=== PATIENT | male | born 1935 | race African-American/Black ===

== ENCOUNTER 2016-06-06 14:06 | Emergency (ER) | payer MEDICARE, BC ==
[~2016-06-06] VITALS: Ht 162.6 cm; Wt 44.5 kg
[~2016-06-06 14:06] MED LIST: ACET500T33 PO; ATOR20TA58 PO; BISA-42 PO; ERYT1OIN6 OP; FINA5TAB4 PO; FLUT1DIS5 IH; FURO40TA4 PO; GUAI12003 PO; HYDR-2678 PO; LORA0.5T PO; METO25TA2 PO; OMEP40CA5 PO; PROAIR HFA8.5 GM INH; SUCR1TAB PO; TAMS0.4C97 PO; TIOT18CA IH
[2016-06-06] MEDS ORDERED: IV NORMAL SALINE 1000ML BAG 1,000 ML IV SCH (14:19)
[2016-06-06 14:28] LABS: BASO % 0 % (0-3); EOS % 0 % (0-3); HEMATOCRIT 33.9 % (39.0-53.0); HEMOGLOBIN 11.7 g/dL (13.0-17.5); LYMPH # 0.8 x10^3/uL (1.0-4.8); LYMPH % 8 % (24-48); MEAN CORPUSCULAR HEMOGLOBIN 30 pg (25-35); MEAN CORPUSCULAR HGB CONC 35 g/dL (31-37); MEAN CORPUSCULAR VOLUME 87 fL (79-100); MONO % 8 % (0-9); NEUT % 83 % (31-73); PLATELET COUNT 295 x10^3/uL (140-400); WHITE BLOOD COUNT 9.6 x10^3/uL (4.0-11.0)
--- NOTE | 2016-06-06 14:28 | PHYS DOC ---
Past Medical History Past Medical History: Arthritis, COPD Additional Past Medical Histor: CARDIOMYOPATHY Past Surgical History: Pacemaker Additional Past Surgical Histo: HERNIA Alcohol Use: None Drug Use: None Adult General Chief Complaint Chief Complaint: MECHANICAL FALL HPI HPI Patient is a pleasant 80-year-old male with a history of COPD emphysema and end- stage lung disease who presents today after a fall off a couch. Apparently last night he was sleeping on the couch rolled off the couch was disconnected from his oxygen was able to call his daughter. The daughter dispensed EMS to the scene and found this gentleman lying on the ground in the supine position saturations were in the mid 70s patient was not confused or altered was not complaining of any discomfort just was too weak to get off the floor. Patient denies any abdominal pain chest pain only has right shoulder pain that is reproducible on exam and with certain movements. Denies any hip pain denies any back pain as a new focal neurologic deficit. Patient's sats pop back up to the mid 90s to 100 100s based on his 4 L requirement for his chronic lung disease. He has no complaints at this time was prefer to go home but he is not significantly dehydrated. His family is at bedside Review of Systems Review of Systems Constitutional: Denies fever or chills [] Eyes: Denies change in visual acuity, redness, or eye pain [] HENT: Denies nasal congestion or sore throat [] Respiratory: Denies cough or shortness of breath [] Cardiovascular: No additional information not addressed in HPI [] GI: Denies abdominal pain, nausea, vomiting, bloody stools or diarrhea [] : Denies dysuria or hematuria [] Musculoskeletal: Complains only of right shoulder pain. Integument: Denies rash or skin lesions [] Neurologic: Denies headache, focal weakness or sensory changes [] Endocrine: Denies polyuria or polydipsia [] Current Medications Current Medications Current Medications Medications (Trade) Dose Ordered Sig/Yue Start Time Stop Time Status Last Admin Dose Admin Sodium Chloride (Iv Sodium Chloride 0.9% 1000ml Bag) 1,000 ml @ 1,000 mls/hr Q1H 06/06/16 14:19 06/06/16 15:18 DC 06/06/16 14:46 1,000 MLS/HR Sodium Chloride (Normal Saline Flush) 10 ml QSHIFT PRN 06/06/16 14:30 06/06/16 14:46 10 ML Allergies Allergies Allergies Coded Allergies Type Severity Reaction Last Updated Verified Penicillins Allergy Severe hives 10/14/15 Yes Physical Exam Physical Exam Constitutional: Well developed, well nourished, no acute distress, non-toxic appearance. [] HENT: Normocephalic, atraumatic, bilateral external ears normal, oropharynx moist, no oral exudates, nose normal. [] Eyes: PERRLA, EOMI, conjunctiva normal, no discharge. [] Neck: Normal range of motion, no tenderness, supple, no stridor. [] Cardiovascular:Heart rate regular rhythm, no murmur [] Lungs & Thorax: Chronic shortness of breath without wheeze cough Abdomen: Bowel sounds normal, soft, no tenderness, no masses, no pulsatile masses. [] Skin: Warm, dry, no erythema, no rash. [] Back: No tenderness, no CVA tenderness. [] Extremities: No tenderness, no cyanosis, no clubbing, ROM intact, no edema. [] Neurologic: Alert and oriented X 3, normal motor function, normal sensory function, no focal deficits noted. [] Psychologic: Affect normal, judgement normal, mood normal. [] Current Patient Data Vital Signs Vital Signs Date Time Temp Pulse Resp B/P Pulse Ox O2 Delivery O2 Flow Rate FiO2 06/06/16 14:51 94 22 108/55 98 Nasal Cannula 4 06/06/16 14:11 98.2 98.2 Lab Values Laboratory Tests Test 06/06/16 14:10 06/06/16 14:45 White Blood Count 9.6x10^3/uL (4.0-11.0) Red Blood Count 3.90x10^6/uL (4.30-5.70) L Hemoglobin 11.7g/dL (13.0-17.5) L Hematocrit 33.9% (39.0-53.0) L Mean Corpuscular Volume 87fL (79-100) Mean Corpuscular Hemoglobin 30pg (25-35) Mean Corpuscular Hemoglobin Concent 35g/dL (31-37) Red Cell Distribution Width 14.0% (11.5-14.5) Platelet Count 295x10^3/uL (140-400) Neutrophils (%) (Auto) 83% (31-73) H Lymphocytes (%) (Auto) 8% (24-48) L Monocytes (%) (Auto) 8% (0-9) Eosinophils (%) (Auto) 0% (0-3) Basophils (%) (Auto) 0% (0-3) Neutrophils # (Auto) 7.9x10^3uL (1.8-7.7) H Lymphocytes # (Auto) 0.8x10^3/uL (1.0-4.8) L Monocytes # (Auto) 0.8x10^3/uL (0.0-1.1) Eosinophils # (Auto) 0.0x10^3/uL (0.0-0.7) Basophils # (Auto) 0.0x10^3/uL (0.0-0.2) Troponin I Quantitative 0.024ng/mL (0.000-0.055) Sodium Level 130mmol/L (136-145) L Potassium Level 4.2mmol/L (3.5-5.1) Chloride Level 92mmol/L (98-107) L Carbon Dioxide Level 35mmol/L (21-32) H Anion Gap 3 (6-14) L Blood Urea Nitrogen 15mg/dL (8-26) Creatinine 0.6mg/dL (0.7-1.3) L Estimated GFR (Cockcroft-Gault) 156.1 Glucose Level 110mg/dL (70-99) H Calcium Level 9.1mg/dL (8.5-10.1) Laboratory Tests 06/06/16 14:10 Laboratory Tests 06/06/16 14:45 EKG EKG [Patient's EKG timed 1417 06/06/2016 that J sinus tachycardia low voltage with purulent 140 QRS of 102 nonspecific T-wave flattening in the lateral leads no acute ischemia noted. There is a question Q-wave in V1] Radiology/Procedures Radiology/Procedures [] Portable chest, 06/06/2016: History: Fall, injury Comparison is made to a study from 09/02/2012. A left-sided transvenous pacemaker remains in place with 2 leads extending into the right heart. Surgical clips overlie the upper chest. The heart size is normal. There is calcific plaquing of the aorta. Emphysematous changes are present in the lungs. Scattered linear opacities are probably due to scarring. There are oblique lines overlying the right chest laterally compatible with skin folds. There is no evidence of pneumothorax or pleural fluid. The bony structures are demineralized. IMPRESSION: 1. Emphysema with parenchymal scarring. 2. No acute cardiopulmonary abnormality is detected. DICTATED and SIGNED BY: DEEJAY BARROS MD DATE: 06/06/16 1441 CC: DAPHNE GUPTA MD; SABINO ROMEO MD ~ Indication fall, pain. Internally and externally rotated views of the right shoulder as well as a Y view were obtained. There are substantial degenerative changes. There is marked narrowing between the head of the humerus and the acromion consistent with a chronic rotator cuff tear. Sclerotic changes at the same level are noted. There are significant glenohumeral degenerative changes as well as degenerative change at the AC joint. An acute bony finding is not seen. IMPRESSION: Chronic changes. No acute finding seen DICTATED and SIGNED BY: BETH SALAS MD DATE: 06/06/16 1444 CC: DAPHNE GUPTA MD; SABINO ROMEO MD ~ Course & Med Decision Making Course & Med Decision Making Pertinent Labs and Imaging studies reviewed. (See chart for details) [Patient is a pleasant 6-year-old male with a history of COPD and emphysema slid off the couch was too weak to get up last night called his daughter this morning off his oxygen noted to be hypoxic but not altered. Oxygen was returned patient feels markedly better with actually like to go home. He's got no complaints x-ray showed be completed basic labs be completely to make sure patient is definitely dehydrated or weakness was associated with an cardiac event.] Patient is a pleasant 80-year-old male who is presently resting comfortably reviewed chest x-ray as well as shoulder x-ray done asserting no cold fractures no pulmonary contusion notes of pneumothorax. Patient would prefer to go home like enzymes are normal patient has a history of hyponatremia today's sodium levels 130 which is not significantly lower than normal. We transported by his daughter. He was initially thought the patient was too weak secondary to general debility which is likely and hypoxia. Hypoxia was well treated with nasal cannula at 4 L which is his normal level of oxygenation. Has no complaints this time will be discharged home. Dragon Disclaimer Dragon Disclaimer This electronic medical record was generated, in whole or in part, using a voice recognition dictation system. Departure Departure Impression: Primary Impression: Shoulder contusion Additional Impression: Hypoxia Disposition: 01 HOME, SELF-CARE Condition: IMPROVED Referrals: SABINO ROMEO MD (PCP) Patient Instructions: Chronic Obstructive Pulmonary Disease, Contusion, Hypoxemia Additional Instructions: Please return for any new or increasing symptoms or feel any increased shoulder pain or neck pain. I know we discussed possible head CT but given the fact of no head injury would not like head CT there is some risk shearing forces causing intracranial hemorrhage even such low-impact mechanism. Encouraged to return immediately for any change in mental status or activity question concerns. Please follow up with her primary doctor for routine care Scripts Acetaminophen (Tylenol)325 Mg Tablet1-2 Tab PO QID PAIN #60 TAB Ref 2 Prov:DAPHNE GUPTA MD 06/06/16 Problem Qualifiers DAPHNE GUPTA MD June 06, 2016 14:28
[2016-06-06] MEDS ORDERED: 0.9 % SODIUM CHLORIDE 10 ML DISP.SYRIN. IV PRN (14:30)
--- NOTE | 2016-06-06 14:37 | EKG ---
[facility] [address] [place] [address] Test Date: 2016-06-06 Test Time: 14:17:13 Pat Name: BALBIR CLEMENT Department: Room: Gender: M Pleat Taper: : 1935 Requested By: DAPHNE GUPTA Order Number: [id number] Reading MD: Kristen Hammond Measurements Intervals [place] Rate: 104 P: 69 [place]: 140 QRS: 76 QRSD: 102 T: 75 QT: 298 QTc: 392 Interpretive Statements SINUS TACHYCARDIA LOW LIMB LEAD VOLTAGE QRS(T) CONTOUR ABNORMALITY CANNOT RULE OUT ANTEROSEPTAL MYOCARDIAL DAMAGE RI6.01 Unconfirmed report Compared to ECG 09/02/2012 20:22:50 No significant changes Electronically Signed On 06-07-2016 20:41:23 CDT by Kristen Hammond
--- NOTE | 2016-06-06 14:47 | RAD ---
Portable chest, 06/06/2016: History: Fall, injury Comparison is made to a study from 09/02/2012. A left-sided transvenous pacemaker remains in place with 2 leads extending into the right heart. Surgical clips overlie the upper chest. The heart size is normal. There is calcific plaquing of the aorta. Emphysematous changes are present in the lungs. Scattered linear opacities are probably due to scarring. There are oblique lines overlying the right chest laterally compatible with skin folds. There is no evidence of pneumothorax or pleural fluid. The bony structures are demineralized. IMPRESSION: 1. Emphysema with parenchymal scarring. 2. No acute cardiopulmonary abnormality is detected.
--- NOTE | 2016-06-06 14:49 | RAD ---
Indication fall, pain. Internally and externally rotated views of the right shoulder as well as a Y view were obtained. There are substantial degenerative changes. There is marked narrowing between the head of the humerus and the acromion consistent with a chronic rotator cuff tear. Sclerotic changes at the same level are noted. There are significant glenohumeral degenerative changes as well as degenerative change at the AC joint. An acute bony finding is not seen. IMPRESSION: Chronic changes. No acute finding seen
[2016-06-06 15:08] LABS: CALCIUM 9.1 mg/dL (8.5-10.1); CREATININE 0.6 mg/dL (0.7-1.3); GFR 156.1; POTASSIUM 4.2 mmol/L (3.5-5.1)
[2016-06-06 15:51] VITALS: BP 106/65
[2016-06-06] MEDS ORDERED: ACET325T9 PO (15:59)
== END 2016-06-06 16:21 | disposition home or self-care (01) ==
LOC: ER 14:06
DX: S40.011A Contusion of right shoulder, initial encounter (principal); R09.02 Hypoxemia; J43.9 Emphysema, unspecified; Z95.0 Presence of cardiac pacemaker; Z88.0 Allergy status to penicillin; W08.XXXA Fall from other furniture, initial encounter; Y93.89 Activity, other specified; Y99.8 Other external cause status; Y92.89 Other specified places as the place of occurrence of the external cause
CPT/HCPCS: 36415; 71010; 73030; 80048; 84484; 85027; 93005; 96360; 99285; J7030

== ENCOUNTER 2016-06-25 19:58 | Inpatient (IN) | payer MEDICARE, BC ==
[~2016-06-25] VITALS: Ht 165.1 cm; Wt 44.0 kg
[~2016-06-25 19:58] MED LIST changes: +ACET325T9 PO
[2016-06-25 21:21] LABS: BASO % 0 % (0-3); EOS % 1 % (0-3); HEMATOCRIT 34.9 % (39.0-53.0); HEMOGLOBIN 11.5 g/dL (13.0-17.5); LYMPH # 0.6 x10^3/uL (1.0-4.8); LYMPH % 9 % (24-48); MEAN CORPUSCULAR HEMOGLOBIN 30 pg (25-35); MEAN CORPUSCULAR HGB CONC 33 g/dL (31-37); MEAN CORPUSCULAR VOLUME 90 fL (79-100); MONO % 11 % (0-9); NEUT % 80 % (31-73); PLATELET COUNT 266 x10^3/uL (140-400); RED BLOOD COUNT 3.88 x10^6/uL (4.30-5.70); RED CELL DISTRIBUTION WIDTH 16.2 % (11.5-14.5); WHITE BLOOD COUNT 7.4 x10^3/uL (4.0-11.0)
[2016-06-25] MEDS ORDERED: IV NORMAL SALINE 1000ML BAG 1,000 ML IV ONE ×2 (21:30→23:00)
[2016-06-25] MEDS ORDERED: fentaNYL PF VIAL 100 MCG/2 ML VIAL IV ONE ×2 (21:30→22:45)
--- NOTE | 2016-06-25 21:32 | PHYS DOC ---
Past Medical History Past Medical History: Arthritis, COPD Additional Past Medical Histor: CARDIOMYOPATHY Past Surgical History: Pacemaker Additional Past Surgical Histo: HERNIA, RIGHT LOBECTOMY Alcohol Use: None Drug Use: None Adult General Chief Complaint Chief Complaint: WEAKNESS/GENERALIZED HPI HPI 80-year-old male with history of generalized weakness that's worsened over the last several weeks as well as some mild weight loss as well. Patient has had frequent falls in the last several weeks most notably one approximately 2 weeks ago. She was evaluated at that time and ultimately discharged. Approximately one week later he had another fall but was not evaluated. He does state he hit his head with the fall. Patient is fully alert and oriented at this time and can answer all my questions. He appears cachectic but in no acute distress. He is tachycardic and mildly hypotensive upon arrival. He denies any recent fever or chills. Denies any nausea or vomiting. His family at bedside states he is not eating or drinking at home. They felt they feel he is a candidate at this time for hospice. He is a DNR patient per his own words and family as well at bedside Review of Systems Review of Systems Constitutional: Denies fever or chills [] Eyes: Denies change in visual acuity, redness, or eye pain [] HENT: Denies nasal congestion or sore throat [] Respiratory: Denies cough or shortness of breath [] Cardiovascular: No additional information not addressed in HPI [] GI: Denies abdominal pain, nausea, vomiting, bloody stools or diarrhea [] : Denies dysuria or hematuria [] Musculoskeletal: Denies back pain or joint pain [] Integument: Denies rash or skin lesions [] Neurologic: Denies headache, focal weakness or sensory changes [] Endocrine: Denies polyuria or polydipsia [] Current Medications Current Medications Current Medications Medications (Trade) Dose Ordered Sig/Yue Start Time Stop Time Status Last Admin Dose Admin Fentanyl Citrate (Fentanyl 2ml Vial) 50 mcg 1X ONCE 06/25/16 21:30 06/25/16 21:31 DC 06/25/16 22:16 50 MCG Sodium Chloride 1,000 ml @ 1,000 mls/hr 1X ONCE 06/25/16 21:30 06/25/16 22:29 DC 06/25/16 22:16 1,000 MLS/HR Allergies Allergies Allergies Coded Allergies Type Severity Reaction Last Updated Verified Penicillins Allergy Severe hives 10/14/15 Yes Physical Exam Physical Exam Constitutional: Cachetic, no acute distress, non-toxic appearance. [] HENT: Normocephalic, atraumatic, bilateral external ears normal, oropharynx moist, no oral exudates, nose normal. [] Eyes: PERRLA, EOMI, conjunctiva normal, no discharge. [] Neck: Normal range of motion, no tenderness, supple, no stridor. [] Cardiovascular:Heart rate tachycardic with regular rhythm, no murmur [] Lungs & Thorax: Bilateral breath sounds clear to auscultation [] Abdomen: Bowel sounds normal, soft, no tenderness, no masses, no pulsatile masses. [] Skin: Warm, dry, no erythema, no rash. [] Back: No tenderness, no CVA tenderness. [] Extremities: No tenderness, no cyanosis, no clubbing, ROM intact, no edema. [] Neurologic: Alert and oriented X 3, normal motor function, normal sensory function, no focal deficits noted. [] Psychologic: Affect normal, judgement normal, mood normal. [] Current Patient Data Vital Signs Vital Signs Date Time Temp Pulse Resp B/P (MAP) Pulse Ox O2 Delivery O2 Flow Rate FiO2 06/25/16 20:33 97.9 59 18 101/64 (76) 93 Nasal Cannula 4.0 97.9 Lab Values Laboratory Tests Test 06/25/16 21:11 White Blood Count 7.4 x10^3/uL (4.0-11.0) Red Blood Count 3.88 x10^6/uL (4.30-5.70) L Hemoglobin 11.5 g/dL (13.0-17.5) L Hematocrit 34.9 % (39.0-53.0) L Mean Corpuscular Volume 90 fL (79-100) Mean Corpuscular Hemoglobin 30 pg (25-35) Mean Corpuscular Hemoglobin Concent 33 g/dL (31-37) Red Cell Distribution Width 16.2 % (11.5-14.5) H Platelet Count 266 x10^3/uL (140-400) Neutrophils (%) (Auto) 80 % (31-73) H Lymphocytes (%) (Auto) 9 % (24-48) L Monocytes (%) (Auto) 11 % (0-9) H Eosinophils (%) (Auto) 1 % (0-3) Basophils (%) (Auto) 0 % (0-3) Neutrophils # (Auto) 5.9 x10^3uL (1.8-7.7) Lymphocytes # (Auto) 0.6 x10^3/uL (1.0-4.8) L Monocytes # (Auto) 0.8 x10^3/uL (0.0-1.1) Eosinophils # (Auto) 0.1 x10^3/uL (0.0-0.7) Basophils # (Auto) 0.0 x10^3/uL (0.0-0.2) Sodium Level 134 mmol/L (136-145) L Potassium Level 3.7 mmol/L (3.5-5.1) Chloride Level 94 mmol/L (98-107) L Carbon Dioxide Level 38 mmol/L (21-32) H Anion Gap 2 (6-14) L Blood Urea Nitrogen 42 mg/dL (8-26) H Creatinine 1.0 mg/dL (0.7-1.3) Estimated GFR (Cockcroft-Gault) 86.6 Glucose Level 136 mg/dL (70-99) H Calcium Level 9.8 mg/dL (8.5-10.1) Troponin I Quantitative < 0.017 ng/mL (0.000-0.055) Laboratory Tests 06/25/16 21:11 Laboratory Tests 06/25/16 21:11 EKG EKG EKG as interpreted by vt shows a sinus tachycardia with a rate of 113 bpm. There is a rightward axis. There is some mild ectopy seen but no acute findings otherwise. Radiology/Procedures Radiology/Procedures PROCEDURE CT head without contrast HISTORY Status post fall TECHNIQUE Noncontrast axial cross sectional CT scanning of the head was performed. FINDINGS There is moderate diffuse atrophy. No acute intracranial hemorrhage or midline shift or mass-effect or hydrocephalus or extra-axial fluid collection is seen. No focal hypodense area is seen to indicate an acute infarct or edema radiographically. No skull fracture or pneumocephalus is seen. There is a small amount of dense fluid in the visualized portion of the left maxillary sinus and a small amount of dense fluid within a few of the ethmoid air cells. IMPRESSION One. No acute intracranial findings. 2. Dense fluid within the sinuses could be blood. Clinical correlation is suggested. Electronically signed by: Dominic Lujan MD (June 25, 2016 21:49:57) Portable view of the hip and pelvis as interpreted by me did not demonstrate any obvious fracture. Portable view of the chest as interpreted by me shows a later device with leads that are appropriately placed. There is no obvious findings. Course & Med Decision Making Course & Med Decision Making Pertinent Labs and Imaging studies reviewed. (See chart for details) 80-year-old male who is mildly dehydrated on exam with history of frequent falls in extreme weakness will be admitted to the hospital and a positive consult will be placed. Laboratory workup is pending at this time. I will also obtain a head CT and light of the fact that he had a recent fall in does state he hit his head. He is not altered in any way. I do not see any focal neurologic deficits at this time. His laboratory workup is fairly unremarkable and urinalysis is pending at this time. His chest x-ray, hip and pelvis film, head CT were negative for any obvious injuries. I discussed the need to admit the patient for his ongoing dehydration and failure to thrive with the hospitalist, Dr. Lopez, who agrees with this plan. Palliative consult has been placed. Dragon Disclaimer Dragon Disclaimer This electronic medical record was generated, in whole or in part, using a voice recognition dictation system. Departure Departure Impression: Primary Impression: Weakness Additional Impressions: Dehydration Failure to thrive Disposition: ADMITTED INPATIENT Admitting Physician: Sukh Lopez Condition: STABLE Referrals: SUKH LOPEZ MD (PCP) Problem Qualifiers TRUDI BIRCH DO June 25, 2016 21:32
[2016-06-25 21:33] LABS: CALCIUM 9.8 mg/dL (8.5-10.1); GFR 86.6; POTASSIUM 3.7 mmol/L (3.5-5.1)
--- NOTE | 2016-06-25 21:50 | RAD ---
PROCEDURE CT head without contrast HISTORY Status post fall TECHNIQUE Noncontrast axial cross sectional CT scanning of the head was performed. FINDINGS There is moderate diffuse atrophy. No acute intracranial hemorrhage or midline shift or mass-effect or hydrocephalus or extra-axial fluid collection is seen. No focal hypodense area is seen to indicate an acute infarct or edema radiographically. No skull fracture or pneumocephalus is seen. There is a small amount of dense fluid in the visualized portion of the left maxillary sinus and a small amount of dense fluid within a few of the ethmoid air cells. IMPRESSION One. No acute intracranial findings. 2. Dense fluid within the sinuses could be blood. Clinical correlation is suggested. Electronically signed by: Dominic Lujan MD (June 25, 2016 21:49:57)
[2016-06-25] MEDS ORDERED: ONDANSETRON PF 4 MG/2 ML VIAL. IV PRN (22:00)
[2016-06-25 22:46] LABS: BILIRUBIN,URINE NEGATIVE (NEG); GLUCOSE,URINE NEGATIVE (NEG); NITRITE,URINE NEGATIVE (NEG); PH,URINE 5.5; PROTEIN,URINE NEGATIVE (NEG-TRACE); UROBILINOGEN,URINE 0.2 mg/dL (0.2 mg/dL)
--- NOTE | 2016-06-25 22:59 | ACF ---
Admit Criteria Forms Admit Criteria Forms Admit Criteria Forms DEHYDRATION Clinical Indications for Admission to Inpatient Care (Place 'X' for any and all applicable criteria): Admission is indicated for ANY ONE of the following (1)(2)(3)(4)(5): [X]I. Inpatient admission required rather than observation care (see Dehydration: Observation Care guideline as appropriate) because of ANY ONE of the following: [ ]a) Vomiting that is severe or persistent [ ]b) Severe electrolyte abnormalities requiring inpatient care [ ]c) Hemodynamic instability [ ]d) IV fluid to replace significant ongoing losses (greater than 3 L/m2 per day (10) (11) [ ]e) Parenteral nutrition regimen that must be implemented on inpatient basis [X]f) Other condition,treatment or monitoring requiring inpatient admission [ ]II. Serious cause for dehydration requiring acute hospitalization (eg, bowel obstruction, increased intracranial pressure, infectious cause) Extended stay beyond goal length of stay may be needed for(1)(3 )(4)(17): [ ]a) Chronic severe dehydration [ ]b) Persistent vital sign changes, severe electrolyte imbalance, or diagnosed cause of dehydration that requires continued hospitalization (eg, bowel obstruction, increased intracranial pressure) [ ]c) Older patients (65 years or older) [ ]d) Severe comorbid illness (eg, renal failure, heart failure, poorly controlled diabetes) The original [employer] content created by [employer] has been revised. The portions of the content which have been revised are identified through the use of italic text or in bold, and [facility] has neither reviewed nor approved the modified material. All other unmodified content is copyright [employer]. Please see references footnoted in the original [employer] edition 2016 TAY BORRERO June 25, 2016 22:59
[2016-06-25 23:00] VITALS: BP 93/59
[2016-06-25 23:13] LABS: BACTERIA,URINE 0 /HPF (0-FEW); RBC,URINE OCC /HPF (0-2); WBC,URINE OCC /HPF (0-4)
[2016-06-26] MEDS ORDERED: UBID30CA14 PO (00:20)
[2016-06-26] MEDS ORDERED: ROFL500T7 PO (00:20)
[2016-06-26] MEDS ORDERED: RANI300T PO (00:20)
[2016-06-26] MEDS ORDERED: ZOLP5TAB5 PO (00:20)
[2016-06-26] MEDS ORDERED: PROAIR HFA8.5 GM INH (00:20)
[2016-06-26] MEDS ORDERED: FLUT9.9S NS (00:20)
[2016-06-26] MEDS ORDERED: HYDR-2672 PO (00:20)
[2016-06-26] MEDS ORDERED: ALBU1.25 NEB (00:20)
[2016-06-26] MEDS ORDERED: GUAI400T27 PO (00:20)
[2016-06-26] MEDS ORDERED: FLUT1DIS5 IH (00:20)
[2016-06-26] MEDS ORDERED: POTA20TA82 PO (00:20)
[2016-06-26] MEDS: fentaNYL PF VIAL 100 MCG/2 ML VIAL IV PRN ×6 (01:34→21:53)
[2016-06-26 03:00] VITALS: BP 94/48
[2016-06-26 06:10] LABS: CALCIUM 8.8 mg/dL (8.5-10.1); CREATININE 0.8 mg/dL (0.7-1.3); POTASSIUM 4.1 mmol/L (3.5-5.1)
[2016-06-26 06:12] LABS: BASO % 0 % (0-3); EOS % 0 % (0-3); HEMATOCRIT 29.4 % (39.0-53.0); HEMOGLOBIN 9.9 g/dL (13.0-17.5); LYMPH # 0.9 x10^3/uL (1.0-4.8); LYMPH % 8 % (24-48); MEAN CORPUSCULAR HEMOGLOBIN 30 pg (25-35); MEAN CORPUSCULAR HGB CONC 34 g/dL (31-37); MEAN CORPUSCULAR VOLUME 89 fL (79-100); MONO % 9 % (0-9); NEUT % 82 % (31-73); PLATELET COUNT 266 x10^3/uL (140-400); RED BLOOD COUNT 3.32 x10^6/uL (4.30-5.70); RED CELL DISTRIBUTION WIDTH 16.1 % (11.5-14.5); WHITE BLOOD COUNT 11.2 x10^3/uL (4.0-11.0)
[2016-06-26 07:00] VITALS: BP 91/50
--- NOTE | 2016-06-26 07:31 | EKG ---
[facility] [address] [place] [address] Test Date: 2016-06-25 Test Time: 21:20:28 Pat Name: BALBIR CLEMENT Department: Room: [facility] Gender: M [employer]ician: : 1935 Requested By: TRUDI BIRCH Order Number: [id number] Reading MD: Kristen Hammond Measurements Intervals [place] Rate: 113 P: 90 [place]: 140 QRS: 96 QRSD: 110 T: 94 QT: 338 QTc: 469 Interpretive Statements SINUS TACHYCARDIA RIGHTWARD AXIS LOW LIMB LEAD VOLTAGE RI6.01 Compared to ECG 06/06/2016 14:17:13 Right-axis deviation now present Electronically Signed On 06-29-2016 20:33:11 CDT by Kristen Hammond
--- NOTE | 2016-06-26 07:44 | RAD ---
Pelvis with both hips, 06/25/2016: History: Fall, pain No fracture or dislocation is identified. The hip joint spaces are fairly well-preserved with only mild marginal spurring. There are mild degenerative changes in the lower lumbar spine. Scattered vascular calcifications are evident. IMPRESSION: No acute pelvic or hip abnormality is detected. Portable chest, 06/25/2016: History: Shortness of breath Comparison is made to a study from 06/06/2016. A left-sided transvenous pacemaker remains in place with 2 leads extending into the right heart. Surgical clips are again noted in the upper chest. The heart size is normal. There is a minimal streaky retrocardiac opacity in the left base. Emphysematous changes are present in the lungs with mild parenchymal scarring. No right lung infiltrate is seen. There is no evidence of pleural fluid. IMPRESSION: 1. Emphysema with parenchymal scarring. 2. Minimal retrocardiac left basilar opacities compatible with atelectasis. A component of pneumonia cannot be excluded.
[2016-06-26] MEDS ORDERED: ACETAMINOPHEN 325 MG TABLET. PO PRN (08:45)
[2016-06-26] MEDS ORDERED: MAGNESIUM HYDROXIDE 2,400 MG/30 ML ORAL.SUSP. PO PRN (08:45)
[2016-06-26] MEDS ORDERED: BISACODYL 10 MG SUPP.RECT. PR PRN (08:45)
[2016-06-26] MEDS ORDERED: ALBUTEROL SULFATE 2.5 MG/3 ML NEBU. NEB PRN (09:15)
[2016-06-26] MEDS ORDERED: fentaNYL PF VIAL 100 MCG/2 ML VIAL IV PRN (09:15)
--- NOTE | 2016-06-26 09:27 | PDOC ---
Provider Note Provider Note history and physical dictated # [id number] SABINO ROMEO MD June 26, 2016 09:27
[2016-06-26] MEDS: AMINO AC 3%/ELECTROLYTE/GLYCER 1,000 ML IV SCH (09:37)
[2016-06-26] MEDS: SUCRALFATE 1 GM/10 ML ORAL.SUSP. PO SCH ×4 (09:39→21:47)
[2016-06-26] MEDS: ROFLUMILAST 500 MCG TABLET. PO SCH (09:39)
[2016-06-26] MEDS: FINASTERIDE 5 MG TABLET. PO SCH (09:39)
[2016-06-26] MEDS: FERROUS SULFATE 325 MG TABLET. PO SCH (09:39)
[2016-06-26] MEDS: LORazepam 0.5 MG TABLET PO PRN (09:39)
[2016-06-26] MEDS: PANTOPRAZOLE 40 MG TABLET.DR. PO SCH ×2 (09:40→17:00)
[2016-06-26] MEDS ORDERED: PANTOPRAZOLE 40 MG TABLET.DR. PO SCH (10:00)
--- NOTE | 2016-06-26 10:20 | RAD ---
Indication shortness of breath. History of cardiomyopathy. Noncontrast images through the chest were obtained and are compared to an examination 12/27/2015. That examination referenced several nodules in the lungs. Imaging through the upper abdomen is unremarkable. Known anterior mediastinal mass persists and appears unchanged. Significant hilar or mediastinal adenopathy is not seen. Underlying emphysematous changes are noted. Occasional small nodules seen previously appear stable. Patchy nonsolid parenchymal opacity seen previously in the right lower lobe has cleared. The finding previously may have represented a focus of pneumonia. There are possible two small new nodules in the right lower lobe, images 23 and 25. There is an opacity in the left upper lobe measuring approximately 4 to 5 mm, image 32, which may represent an area of scarring or an inflammatory focus. A developing pulmonary nodule is not entirely excluded. There are changes in the left lower lobe which appear chronic. IMPRESSION: No definite acute finding. Unchanged mediastinal mass. Several pulmonary nodules are seen which appear stable. There are possible new nodules in the right lower lobe and left upper lobe. Parenchymal changes in the left lower lobe, probably chronic and appearing relatively stable compared to the previous exam PQRS Compliance Statement: One or more of the following individualized dose reduction techniques were utilized for this examination: 1. Automated exposure control 2. Adjustment of the mA and/or kV according to patient size 3. Use of iterative reconstruction technique
[2016-06-26] MEDS: HYDROcodone/APAP 5/325MG 1 TAB TABLET PO PRN ×2 (10:39→18:00)
[2016-06-26 10:56] VITALS: BP 97/62
--- NOTE | 2016-06-26 11:04 | PDOC2 ---
GI CONSULT Reason For Consult: Solid food dysphagia, Vogel's esophagus HPI: HPI: 80 y/o AA male brought to ER by family for progressive weakness, decreased oral intake, weight loss, recent falls. Previous eval through [facility] for similar symptoms. History from office records, pt, and niece Jacklyn at bedside. Note cosnult for palliative care also placed. H/o dysphagia 2/2 dysmotility w/ prior esophageal manometry by Dr. Godfrey in 2012 showing hypotensive peristaltic activity in the esophageal body. Apparently had some response to esophageal dilation at one point (for about 1-2 months at a time before recurrence of symptoms), but this lost efficacy. Additional h/o Vogel's diagnosed in 1997 w/ last two biopsies negative. On PPI and H2 stefani. Last EGD in 10/[address] Capone revealing jhony in the esophagus (treated w/ Nystatin swish and swallow), inflammation in the distal esophagus (negative for Vogel's), reactive gastropathy (negative for H. pylori ), and normal mucosa in the duodenum. H/o COPD w/ use of inhalers. 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 Domperidone caused tremors, and he has refused trial of Reglan. As of last office visit in 10/2015, was taking E-mycin 250mg TID but no longer (niece not sure why). Refused PEG in past. H/o constipation improved w/ Dulcolax. Last had soft BM ~2 days ago. Last colonoscopy in 10/2015 w/ 5mm rectal tubular adenoma and hemorrhoids. Per his niece, he diet is limited to liquids he eats through a straw (ice cream shakes, soups, cream of wheat). He says he can no longer tolerate the taste of Boost or Ensure. He does tolerate swallowing pills. Family says he has lost an additional ~20 pounds in the past two months. He's not sure if swallowing is more difficult now. No odynophagia or abd pain. He still does not want a PEG but agrees to think about it per his family's request. Started on PPN and full liquids, pulmonology also asked to see. PMH: PMH: esophageal dysmotility/dysphagia, GERD/Vogel's esophagus, jhony esophagitis , hiatal hernia, IBS, weight loss, cardiomyopathy, COPD/emphysema, dyslipidemia , BPH, arthritis, lactose intolerance, pacemaker/defibrillator, right lobectomy (says for COPD, denies cancer) FH: Family History: No pertinent hx Social History: Smoke: Quit ALCOHOL: rare Drugs: None ROS: GEN: Denies fevers, chills, sweats HEENT: Denies blurred vision, sore throat CV: Denies chest pain RESP: +SOA GI: Per HPI : Denies hematuria, dysuria ENDO: +weight loss NEURO: Denies confusion, dizziness MSK: +weakness +falls SKIN: Denies jaundice, pruritus Vitals: Vitals: Vital Signs Date Time Temp Pulse Resp B/P (MAP) Pulse Ox O2 Delivery O2 Flow Rate FiO2 06/26/16 09:38 18 Nasal Cannula 6.0 06/26/16 07:00 98.1 101 91/50 (64) 99 98.1 Labs: Labs: Laboratory Tests Test 06/25/16 21:11 06/25/16 22:30 06/26/16 05:35 White Blood Count 7.4 x10^3/uL (4.0-11.0) 11.2 x10^3/uL (4.0-11.0) Red Blood Count 3.88 x10^6/uL (4.30-5.70) 3.32 x10^6/uL (4.30-5.70) Hemoglobin 11.5 g/dL (13.0-17.5) 9.9 g/dL (13.0-17.5) Hematocrit 34.9 % (39.0-53.0) 29.4 % (39.0-53.0) Mean Corpuscular Volume 90 fL (79-100) 89 fL (79-100) Mean Corpuscular Hemoglobin 30 pg (25-35) 30 pg (25-35) Mean Corpuscular Hemoglobin Concent 33 g/dL (31-37) 34 g/dL (31-37) Red Cell Distribution Width 16.2 % (11.5-14.5) 16.1 % (11.5-14.5) Platelet Count 266 x10^3/uL (140-400) 266 x10^3/uL (140-400) Neutrophils (%) (Auto) 80 % (31-73) 82 % (31-73) Lymphocytes (%) (Auto) 9 % (24-48) 8 % (24-48) Monocytes (%) (Auto) 11 % (0-9) 9 % (0-9) Eosinophils (%) (Auto) 1 % (0-3) 0 % (0-3) Basophils (%) (Auto) 0 % (0-3) 0 % (0-3) Neutrophils # (Auto) 5.9 x10^3uL (1.8-7.7) 9.3 x10^3uL (1.8-7.7) Lymphocytes # (Auto) 0.6 x10^3/uL (1.0-4.8) 0.9 x10^3/uL (1.0-4.8) Monocytes # (Auto) 0.8 x10^3/uL (0.0-1.1) 1.0 x10^3/uL (0.0-1.1) Eosinophils # (Auto) 0.1 x10^3/uL (0.0-0.7) 0.0 x10^3/uL (0.0-0.7) Basophils # (Auto) 0.0 x10^3/uL (0.0-0.2) 0.0 x10^3/uL (0.0-0.2) Sodium Level 134 mmol/L (136-145) 137 mmol/L (136-145) Potassium Level 3.7 mmol/L (3.5-5.1) 4.1 mmol/L (3.5-5.1) Chloride Level 94 mmol/L (98-107) 98 mmol/L (98-107) Carbon Dioxide Level 38 mmol/L (21-32) 35 mmol/L (21-32) Anion Gap 2 (6-14) 4 (6-14) Blood Urea Nitrogen 42 mg/dL (8-26) 33 mg/dL (8-26) Creatinine 1.0 mg/dL (0.7-1.3) 0.8 mg/dL (0.7-1.3) Estimated GFR (Cockcroft-Gault) 86.6 112.0 Glucose Level 136 mg/dL (70-99) 92 mg/dL (70-99) Calcium Level 9.8 mg/dL (8.5-10.1) 8.8 mg/dL (8.5-10.1) Troponin I Quantitative < 0.017 ng/mL (0.000-0.055) Urine Collection Type Unknown Urine Color Yellow Urine Clarity Clear Urine pH 5.5 Urine Specific [place] 1.015 Urine Protein Negative mg/dL (NEG-TRACE) Urine Glucose (UA) Negative mg/dL (NEG) Urine Ketones (Stick) Negative mg/dL (NEG) Urine Blood Negative (NEG) Urine Nitrite Negative (NEG) Urine Bilirubin Negative (NEG) Urine Urobilinogen Dipstick 0.2 mg/dL (0.2 mg/dL) Urine Leukocyte Esterase Negative (NEG) Urine RBC Occ /HPF (0-2) Urine WBC Occ /HPF (0-4) Urine Squamous Epithelial Cells None /LPF Urine Bacteria 0 /HPF (0-FEW) Urine Hyaline Casts Few /HPF Urine Mucus Slight /LPF Allergies: Coded Allergies: Penicillins (Verified Allergy, Severe, hives, 10/14/15) Medications: Current Medications Medications (Trade) Dose Ordered Sig/Yue Route PRN Reason Start Time Stop Time Status Last Admin Dose Admin Fentanyl Citrate (Fentanyl 2ml Vial) 50 mcg 1X ONCE IV 06/25/16 21:30 06/25/16 21:31 DC 06/25/16 22:16 Sodium Chloride 1,000 ml @ 1,000 mls/hr 1X ONCE IV 06/25/16 21:30 06/25/16 22:29 DC 06/25/16 22:16 Ondansetron HCl (Zofran) 4 mg PRN Q8HRS PRN IV NAUSEA/VOMITING 06/25/16 22:00 06/26/16 21:59 06/26/16 09:38 Fentanyl Citrate (Fentanyl 2ml Vial) 50 mcg PRN Q2HR PRN IV PAIN 06/25/16 22:00 06/26/16 21:59 06/26/16 09:38 Fentanyl Citrate (Fentanyl 2ml Vial) 50 mcg 1X ONCE IV 06/25/16 22:45 06/25/16 22:46 DC 06/25/16 22:51 Sodium Chloride 1,000 ml @ 125 mls/hr 1X ONCE IV 06/25/16 23:00 06/26/16 06:59 DC 06/25/16 23:23 Amino Acids/ Glycerin/ Electrolytes 1,000 ml @ 60 mls/hr [id number] IV 06/26/16 08:45 06/26/16 09:37 Lorazepam (Ativan) 0.5 mg QID PRN PO ANXIETY / AGITATION 06/26/16 08:45 06/26/16 09:39 Finasteride (Proscar) 5 mg DAILY PO 06/26/16 09:00 06/26/16 09:39 Roflumilast (Daliresp) 500 mcg DAILY PO 06/26/16 09:00 06/26/16 09:39 Ferrous Sulfate (Feosol) 325 mg DAILYWBKFT PO 06/26/16 10:00 06/26/16 09:39 Sucralfate (Carafate) 1 gm QIDACHS PO 06/26/16 09:30 06/26/16 09:39 Pantoprazole Sodium (Protonix) 40 mg BIDAC PO 06/26/16 10:00 06/26/16 09:40 Imaging: Imaging: Pelvis, hips, CXR 06/25/16 IMPRESSION: No acute pelvic or hip abnormality is detected. IMPRESSION: 1. Emphysema with parenchymal scarring. 2. Minimal retrocardiac left basilar opacities compatible with atelectasis. A component of pneumonia cannot be excluded. CT head 06/25/16 IMPRESSION 1. No acute intracranial findings. 2. Dense fluid within the sinuses could be blood. Clinical correlation is suggested. Chest CT 06/26/16 IMPRESSION: No definite acute finding. Unchanged mediastinal mass. Several pulmonary nodules are seen which appear stable. There are possible new nodules in the right lower lobe and left upper lobe. Parenchymal changes in the left lower lobe, probably chronic and appearing relatively stable compared to the previous exam. PE: GEN: thin HEENT: Atraumatic, PERRL LUNGS: decreased, nasal cannula HEART: S1S2 ABD: BS quiet, S/ND/NT EXTREMITY: No edema SKIN: No rashes, no jaundice NEURO/PSYCH: A & O 3, eyes closed most of interview A/P: A/P: Weakness, decreased PO intake, weight loss, falls Dysphagia, esophageal dysmotility -manometry w/ Dr. Godfrey in 2012 ---> hypotensive peristaltic activity -last EGD w/ Dr. Capone 10/2015, jhony esophagitis treated w/ Nystatin (h/o COPD, inhaler use) -at one point had some response to esophageal dilation -intolerant to Domperidone, prefers not to try Reglan, at one point on E-mycin -has refused PEG in past, has grown tired of Boost, Ensure -limited to liquid diet through straw, tolerates pills H/o Vogel's esophagus -diagnosed in 1997, last two biopsies negative CRC screen, h/o tubular adenoma -last colonoscopy 10/2015 H/o constipation -improved w/ Dulcolax COPD, abnormal CT chest -per pulm -- Await palliative care and family discussion. Family would like to proceed w/ PEG, pt considering. Continue PPI and H2 stefani. Will review w/ Dr. Vazquez. GABRIELA MORGAN June 26, 2016 11:04
[2016-06-26] MEDS ORDERED: SUCRALFATE 1 GM TABLET. PO SCH (11:30)
--- NOTE | 2016-06-26 11:34 | PDOC ---
PULMONARY PROGRESS NOTES Vitals Vital Signs Date Time Temp Pulse Resp B/P (MAP) Pulse Ox O2 Delivery O2 Flow Rate FiO2 06/26/16 10:56 98.4 100 16 97/62 (74) 98 Nasal Cannula 6.0 98.4 Labs Laboratory Tests Test 06/25/16 21:11 06/25/16 22:30 06/26/16 05:35 White Blood Count 7.4 x10^3/uL (4.0-11.0) 11.2 x10^3/uL (4.0-11.0) Red Blood Count 3.88 x10^6/uL (4.30-5.70) 3.32 x10^6/uL (4.30-5.70) Hemoglobin 11.5 g/dL (13.0-17.5) 9.9 g/dL (13.0-17.5) Hematocrit 34.9 % (39.0-53.0) 29.4 % (39.0-53.0) Mean Corpuscular Volume 90 fL (79-100) 89 fL (79-100) Mean Corpuscular Hemoglobin 30 pg (25-35) 30 pg (25-35) Mean Corpuscular Hemoglobin Concent 33 g/dL (31-37) 34 g/dL (31-37) Red Cell Distribution Width 16.2 % (11.5-14.5) 16.1 % (11.5-14.5) Platelet Count 266 x10^3/uL (140-400) 266 x10^3/uL (140-400) Neutrophils (%) (Auto) 80 % (31-73) 82 % (31-73) Lymphocytes (%) (Auto) 9 % (24-48) 8 % (24-48) Monocytes (%) (Auto) 11 % (0-9) 9 % (0-9) Eosinophils (%) (Auto) 1 % (0-3) 0 % (0-3) Basophils (%) (Auto) 0 % (0-3) 0 % (0-3) Neutrophils # (Auto) 5.9 x10^3uL (1.8-7.7) 9.3 x10^3uL (1.8-7.7) Lymphocytes # (Auto) 0.6 x10^3/uL (1.0-4.8) 0.9 x10^3/uL (1.0-4.8) Monocytes # (Auto) 0.8 x10^3/uL (0.0-1.1) 1.0 x10^3/uL (0.0-1.1) Eosinophils # (Auto) 0.1 x10^3/uL (0.0-0.7) 0.0 x10^3/uL (0.0-0.7) Basophils # (Auto) 0.0 x10^3/uL (0.0-0.2) 0.0 x10^3/uL (0.0-0.2) Sodium Level 134 mmol/L (136-145) 137 mmol/L (136-145) Potassium Level 3.7 mmol/L (3.5-5.1) 4.1 mmol/L (3.5-5.1) Chloride Level 94 mmol/L (98-107) 98 mmol/L (98-107) Carbon Dioxide Level 38 mmol/L (21-32) 35 mmol/L (21-32) Anion Gap 2 (6-14) 4 (6-14) Blood Urea Nitrogen 42 mg/dL (8-26) 33 mg/dL (8-26) Creatinine 1.0 mg/dL (0.7-1.3) 0.8 mg/dL (0.7-1.3) Estimated GFR (Cockcroft-Gault) 86.6 112.0 Glucose Level 136 mg/dL (70-99) 92 mg/dL (70-99) Calcium Level 9.8 mg/dL (8.5-10.1) 8.8 mg/dL (8.5-10.1) Troponin I Quantitative < 0.017 ng/mL (0.000-0.055) Urine Collection Type Unknown Urine Color Yellow Urine Clarity Clear Urine pH 5.5 Urine Specific [place] 1.015 Urine Protein Negative mg/dL (NEG-TRACE) Urine Glucose (UA) Negative mg/dL (NEG) Urine Ketones (Stick) Negative mg/dL (NEG) Urine Blood Negative (NEG) Urine Nitrite Negative (NEG) Urine Bilirubin Negative (NEG) Urine Urobilinogen Dipstick 0.2 mg/dL (0.2 mg/dL) Urine Leukocyte Esterase Negative (NEG) Urine RBC Occ /HPF (0-2) Urine WBC Occ /HPF (0-4) Urine Squamous Epithelial Cells None /LPF Urine Bacteria 0 /HPF (0-FEW) Urine Hyaline Casts Few /HPF Urine Mucus Slight /LPF Laboratory Tests Test 06/25/16 21:11 06/25/16 22:30 06/26/16 05:35 White Blood Count 7.4 x10^3/uL (4.0-11.0) 11.2 x10^3/uL (4.0-11.0) Red Blood Count 3.88 x10^6/uL (4.30-5.70) 3.32 x10^6/uL (4.30-5.70) Hemoglobin 11.5 g/dL (13.0-17.5) 9.9 g/dL (13.0-17.5) Hematocrit 34.9 % (39.0-53.0) 29.4 % (39.0-53.0) Mean Corpuscular Volume 90 fL (79-100) 89 fL (79-100) Mean Corpuscular Hemoglobin 30 pg (25-35) 30 pg (25-35) Mean Corpuscular Hemoglobin Concent 33 g/dL (31-37) 34 g/dL (31-37) Red Cell Distribution Width 16.2 % (11.5-14.5) 16.1 % (11.5-14.5) Platelet Count 266 x10^3/uL (140-400) 266 x10^3/uL (140-400) Neutrophils (%) (Auto) 80 % (31-73) 82 % (31-73) Lymphocytes (%) (Auto) 9 % (24-48) 8 % (24-48) Monocytes (%) (Auto) 11 % (0-9) 9 % (0-9) Eosinophils (%) (Auto) 1 % (0-3) 0 % (0-3) Basophils (%) (Auto) 0 % (0-3) 0 % (0-3) Neutrophils # (Auto) 5.9 x10^3uL (1.8-7.7) 9.3 x10^3uL (1.8-7.7) Lymphocytes # (Auto) 0.6 x10^3/uL (1.0-4.8) 0.9 x10^3/uL (1.0-4.8) Monocytes # (Auto) 0.8 x10^3/uL (0.0-1.1) 1.0 x10^3/uL (0.0-1.1) Eosinophils # (Auto) 0.1 x10^3/uL (0.0-0.7) 0.0 x10^3/uL (0.0-0.7) Basophils # (Auto) 0.0 x10^3/uL (0.0-0.2) 0.0 x10^3/uL (0.0-0.2) Sodium Level 134 mmol/L (136-145) 137 mmol/L (136-145) Potassium Level 3.7 mmol/L (3.5-5.1) 4.1 mmol/L (3.5-5.1) Chloride Level 94 mmol/L (98-107) 98 mmol/L (98-107) Carbon Dioxide Level 38 mmol/L (21-32) 35 mmol/L (21-32) Anion Gap 2 (6-14) 4 (6-14) Blood Urea Nitrogen 42 mg/dL (8-26) 33 mg/dL (8-26) Creatinine 1.0 mg/dL (0.7-1.3) 0.8 mg/dL (0.7-1.3) Estimated GFR (Cockcroft-Gault) 86.6 112.0 Glucose Level 136 mg/dL (70-99) 92 mg/dL (70-99) Calcium Level 9.8 mg/dL (8.5-10.1) 8.8 mg/dL (8.5-10.1) Troponin I Quantitative < 0.017 ng/mL (0.000-0.055) Urine Collection Type Unknown Urine Color Yellow Urine Clarity Clear Urine pH 5.5 Urine Specific [place] 1.015 Urine Protein Negative mg/dL (NEG-TRACE) Urine Glucose (UA) Negative mg/dL (NEG) Urine Ketones (Stick) Negative mg/dL (NEG) Urine Blood Negative (NEG) Urine Nitrite Negative (NEG) Urine Bilirubin Negative (NEG) Urine Urobilinogen Dipstick 0.2 mg/dL (0.2 mg/dL) Urine Leukocyte Esterase Negative (NEG) Urine RBC Occ /HPF (0-2) Urine WBC Occ /HPF (0-4) Urine Squamous Epithelial Cells None /LPF Urine Bacteria 0 /HPF (0-FEW) Urine Hyaline Casts Few /HPF Urine Mucus Slight /LPF Medications Active Scripts Medications Dose Route/Sig Max Daily Dose Days Date Category Guaifenesin 400 Mg Tablet 400 Mg PO QID 06/26/16 Reported Hydrocodone-Apap 10-325 (Hydrocodone Bit/Acetaminophen) 1 Each Tablet 1 Tab PO PRN Q4-6HRS PRN 06/26/16 Reported Daliresp (Roflumilast) 500 Mcg Tablet 1 Tab PO QODAY 06/26/16 Reported Proair Hfa Inhaler (Albuterol Sulfate) 8.5 Gm Hfa.aer.ad 1 Puff INH PRN Q4-6HRS PRN 06/26/16 Reported Advair 500-50 Diskus (Fluticasone/Salmeterol) 1 Each Disk.w.dev 1 Puff IH BID 06/26/16 Reported Potassium Chloride 20 Meq Tablet.er 20 Meq PO DAILY 06/26/16 Reported Ranitidine Hcl 300 Mg Tablet 1 Tab PO QHS 06/26/16 Reported Albuterol Sulfate Neb Soln (Albuterol Sulfate) 1.25 Mg/3 Ml Vial.neb 1 Vial NEB QID 06/26/16 Reported Flonase Allergy Relief (Fluticasone Propionate) 9.9 Ml Momence.susp 2 Sprays NS DAILY 06/26/16 Reported Zolpidem Tartrate 5 Mg Tablet 1 Tab PO QHS PRN 06/26/16 Reported Coenzyme Q-10 (Ubidecarenone) 30 Mg Capsule 60 Mg PO TID 06/26/16 Reported Tylenol (Acetaminophen) 325 Mg Tablet 1-2 Tab PO QID 06/06/16 Rx Tylenol Extra Strength (Acetaminophen) 500 Mg Tablet 500 Mg PO 10/14/15 Reported Spiriva (Tiotropium [place]) 18 Mcg Cap.w.dev 1 Cap IH DAILY 10/14/15 Reported Lortab 5-325 mg Tablet (Hydrocodone/Acetaminophen) 1 Each Tablet 1 Tab PO HS PRN 10/14/15 Reported Flomax (Tamsulosin Hcl) 0.4 Mg Cap.er.24h 1 Cap PO DAILY 10/14/15 Reported Finasteride 5 Mg Tablet 1 Tab PO DAILY 9/8/16 Reported Lorazepam 0.5 Mg Tablet 1 Tab PO QID PRN 10/14/15 Reported Furosemide 40 Mg Tablet 1 Tab PO BID 10/14/15 Reported Atorvastatin Calcium 20 Mg Tablet 1 Tab PO DAILY 10/14/15 Reported Omeprazole 40 Mg Capsule. 1 Cap PO BID 10/14/15 Reported Impression . FULL CONSULT DICTATED POSSIBLE PNEUMONIA LLL PULM NODULES STABLE ADD SAEED THANKS NURIS JORDAN MD June 26, 2016 11:34
--- NOTE | 2016-06-26 11:38 | HP ---
ADMIT DATE: 06/26/2016 The patient is in room #500. HISTORY OF PRESENT ILLNESS: The patient is an 80-year-old -[place] male, who has got a history of severe chronic obstructive pulmonary disease and chronic respiratory failure with hypoxia, on home oxygen at 4 liters per nasal cannula continuously with a history of Vogel's esophagus, cardiomyopathy with improvement in his ejection fraction to normal. He has an AICD, mild coronary artery disease, benign prostatic hypertrophy, osteoarthritis, and paroxysmal atrial fibrillation, who was admitted to [facility] at the Emergency Room on 06/25/2016 with failure to thrive. He has had cachexia, weight loss, muscle wasting, and multiple falls in the last few weeks. He does live alone. He has a family member, who lives nearby. He has been drinking water and does not like his Ensure. He is unable to eat solid food because of oropharyngeal dysphagia. He denies any abdominal pain. He is coughing up some brown and yellow sputum and denies any hemoptysis. He sought help in the [facility] Emergency Room. He had a chest x-ray done, which showed emphysema and minimal left retrocardiac density consistent with atelectasis, but pneumonia could not be ruled out. A CAT scan of the head showed no acute finding, but again has dense fluid within the sinuses, which could be blood and that is in the left maxillary sinus and a small amount in the ethmoid sinus. He also had an x-ray of both hips and pelvis and there was no fracture seen. He was noted to be dehydrated and received IV fluids - 2-liter bolus in the Emergency Room and a liter of IV fluids. He is drinking water. He wishes to be a [id number], as also, the family and the patient are interested in hospice, but he does not want to leave his home and would like to stay in it, but would need a 24-hour attendant. The patient is therefore admitted for further evaluation for his failure to thrive. ALLERGIES AND INTOLERANCES: INCLUDE BIAXIN, LEVAQUIN CAUSED A RASH, LISINOPRIL, LOSARTAN CAUSED ITCHING AND RASH, AND PENICILLIN. MEDICATIONS: Prior to admission, include Advair 500/50 mcg 1 puff b.i.d., Coenzyme Q10 60 mg t.i.d. Daliresp 500 mcg every day, ferrous sulfate 325 mg every day, finasteride 5 mg every day, Flomax 0.4 mg every day, Flonase 1 spray in each nostril every day, furosemide 40 mg every day, atorvastatin 20 mg every day, lorazepam 0.5 mg q.i.d. p.r.n., Adrian 5/325 mg one at bedtime p.r.n., omeprazole 40 mg b.i.d., potassium chloride 20 mEq half a tablet every day, ProAir inhaler p.r.n., ranitidine 300 mg at bedtime, Spiriva 1 puff daily, Carafate liquid 1 gram before meals t.i.d. at bedtime, and Ambien 5 mg at bedtime p.r.n. PAST MEDICAL HISTORY: Significant for severe chronic obstructive pulmonary disease and chronic respiratory failure with hypoxia, hyperlipidemia, Vogel's esophagus, cardiomyopathy with an improvement of left ventricular ejection fraction, which improved up to 50%, but I believe that was from an echocardiogram from 2014. He has a history of anxiety, gastroparesis, and obstructive sleep apnea, but I believe he is CPAP intolerant, mild coronary artery disease, and benign prostatic hypertrophy. He had an AICD placed in 2008, femoral hernia repair, duodenal ulcer in 1996, right upper lobe lobectomy in 1996, cardiac catheterization with normal coronary arteries in 2007, osteoarthritis, and paroxysmal atrial fibrillation. SOCIAL HISTORY: He currently does not drink alcohol. He quit smoking in 1983 - prior to that, smoked 2 packs per day for a number of years. He lives alone. He is retired. FAMILY HISTORY: Remarkable for his mother with endometrial carcinoma. REVIEW OF SYSTEMS: GENERAL: He denies any fever, chills, or sweats in the last 3 days. CARDIOVASCULAR: No chest pain. PULMONARY: He has got a cough with brown and yellow sputum. GASTROINTESTINAL: He has got oropharyngeal dysphagia. ENDOCRINE: No diabetes mellitus. SKIN: No rashes, and the rest of his systems reviewed are negative, except as stated in the history of present illness. PHYSICAL EXAMINATION: VITAL SIGNS: Temperature 99 degrees, ____ pulse 117, respiratory rate 18, and blood pressure 94/48. Oxygen saturation is not listed. He is on oxygen 6 liters per nasal cannula. HEENT: Eyes: Gaze is conjugate. Mouth: Tongue is midline. He is missing teeth on top, has a few teeth on the bottom. NECK: No cervical lymphadenopathy or thyroid enlargement. HEART: Reveals an S1, S2. There is no S3 or murmur. LUNGS: Reveal decreased breath sounds bilaterally. ABDOMEN: Soft, nontender with no hepatosplenomegaly, masses or tenderness. EXTREMITIES: Lower extremities without edema. He has got dorsalis pedis pulses in his feet. SKIN: No rashes. He has got a soft heel on the left side, but no skin breakdown; the right heel has developed skin breakdown. He is complaining of pain in his feet, but there is no redness or swelling noted. SKIN: No rashes. LABORATORY DATA: His urinalysis was unremarkable. White count was 11.2 - 7.4 yesterday, hemoglobin 9.9 - previously 11.5, and platelet count 266,000. Polys 82 and 8 lymphocytes. Sodium 137, potassium 4.1, chloride 98, total CO2 of 35, BUN 33, and creatinine 0.8 with a BUN of 42 and creatinine 1.0 earlier in the Emergency Room. Blood sugar was 92. Troponin level was less than 0.017. His EKG showed sinus tachycardia. Chest x-ray, CAT scan of the head, and x-ray of the hip and pelvis is as stated in the history of present illness. ASSESSMENT: 1. Failure to thrive. 2. Weight loss with cachexia. 3. Multiple mechanical falls. 4. Severe chronic obstructive pulmonary disease. 5. Chronic respiratory failure with hypoxia. 6. Vogel's esophagus. 7. Solid food dysphagia. 8. Hyperlipidemia. PLAN: At this time is to consult Palliative Care for evaluation of hospice. I spoke with the patient's son-in-law and the son-in-law and daughter wanted to be involved in the decision-making. He apparently does not have a DPOA according to the son-in-law, and apparently, his niece, who lives near him, is also involved in the care. The family is agreeable to have the process validation engineer see him for COPD, the GI doctor to evaluate his solid food dysphagia and possibly an EGD. We will get a CAT scan of the chest to make sure that he does not have any evidence of pneumonia. We will order a sputum culture and start him on some ProcalAmine/PPN for nourishment. We will continue with many of his home medicines. Also make him comfortable with IV fentanyl 50 mcg IV every 2 hours p.r.n. He is a do not resuscitate, which was confirmed with him and his niece at bedside. We will also order some heel protectors and SCDs for deep vein thrombosis prophylaxis and order some physical and occupational therapy. We will put him on a full liquid diet. SABINO ROMEO MD DR: LUCRECIA/dedra JOB#: [id number] / [id number]
[2016-06-26] MEDS: IPRATRPIUM/ALBUTEROL 0.5/2.5MG 3 ML NEBU. NEB SCH ×3 (11:42→20:25)
[2016-06-26 15:00] VITALS: BP 99/58
--- NOTE | 2016-06-26 19:28 | CARD ---
APPROVED REPORT EXAM: Two-dimensional and M-mode echocardiogram with Doppler and color Doppler. Other Information Quality : Technically Limited Rhythm : PacemakerTechnically limited study due to body habitus and positioning. INDICATION Cardiomyopathy 2D DIMENSIONS RVDd3.4 (2.9-3.5cm)Left Atrium(2D)2.9 (1.6-4.0cm) IVSd1.0 (0.7-1.1cm)Aortic Root(2D)3.1 (2.0-3.7cm) LVDd4.9 (3.9-5.9cm)LVOT Diameter2.1 (1.8-2.4cm) PWd1.0 (0.7-1.1cm)LVDs4.1 (2.5-4.0cm) FS (%) 15.3 %SV36.2 ml LVEF(%)30.0 (>50%) Aortic Valve AoV Peak Zoran.73.5cm/sAoV VTI15.5cm AO Peak GR.2.2mmHgLVOT VTI 10.56cm AO Mean GR.1mmHg Mitral Valve MV E Rdgdnerx65.8cm/sMV E Peak Gr.1mmHg MV DECEL [id number] A [place]25.5cm/s E/A Ratio0.6MV A [id number] TDI Lateral E' P. V5.03cm/sMedial E' P. V4.44cm/s E/Lateral E'6.1E/Medial E'6.9 Tricuspid Valve TR P. [id number] [id number] TR Peak Gr.[id number] LEFT VENTRICLE The left ventricle is normal size. There is normal left ventricular wall thickness. Left ventricle sy stolic function is moderately impaired. The Ejection Fraction is 30%. There is global hypokinesis of the left ventricle. Tissue Doppler imaging reveals moderate left ventricular diastolic dysfunction. RIGHT VENTRICLE The right ventricle is normal size. The right ventricular systolic function is normal. ATRIA The left atrium size is normal. The right atrium size is normal. The interatrial septum is intact wit h no evidence for an atrial septal defect or patent foramen ovale as noted on 2-D or Doppler imaging. AORTIC VALVE The aortic valve is calcified but opens well. The aortic valve is trileaflet. Doppler and Color Flow revealed no significant aortic regurgitation. There is no significant aortic valvular stenosis. MITRAL VALVE The mitral valve is normal in structure and function. There is no mitral valve stenosis. Doppler and Color Flow revealed no mitral valve regurgitation noted. TRICUSPID VALVE The tricuspid valve is normal in structure and function. Doppler and Color Flow revealed no tricuspid valve regurgitation noted. Unable to estimate PA pressure. There is no tricuspid valve stenosis. PULMONIC VALVE The pulmonic valve is not well visualized. Doppler and Color Flow revealed no pulmonic valvular regur gitation. There is no pulmonic valvular stenosis. GREAT VESSELS The aortic root is normal in size. The IVC is normal in size and collapses >50% with inspiration. PERICARDIAL EFFUSION There is no evidence of significant pericardial effusion. Critical Notification Critical Value: No <Conclusion> Left ventricle systolic function is moderately impaired. The Ejection Fraction is 30%. Tissue Doppler imaging reveals moderate left ventricular diastolic dysfunction. The left atrium size is normal. The right atrium size is normal. The aortic valve is calcified but opens well. The aortic valve is trileaflet. The mitral valve is normal in structure and function. The tricuspid valve is normal in structure and function. The pulmonic valve is not well visualized. There is no evidence of significant pericardial effusion.
[2016-06-26 19:49] VITALS: BP 91/50
[2016-06-26] MEDS: BUDESONIDE 0.5 MG/2 ML NEBU. NEB SCH (20:25)
[2016-06-26] MEDS ORDERED: ATORVASTATIN CALCIUM 20 MG TABLET PO SCH (21:00)
[2016-06-26] MEDS: FAMOTIDINE 20 MG TABLET. PO SCH (21:47)
--- NOTE | 2016-06-26 23:24 | CONS ---
DATE OF CONSULTATION: 06/26/2016 ATTENDING PHYSICIAN: Dr. Lopez. DICTATING PHYSICIAN: Dr. Nuris Jordan. REASON FOR CONSULTATION: The patient seen in pulmonary consultation at the request of Dr. Lopez for abnormal x-ray revealing some emphysema, parenchymal scarring and possible retrocardiac left opacities. HISTORY OF PRESENT ILLNESS: The patient is an 80-year-old male with history of COPD, chronic respiratory failure, on oxygen supplementation, presented with generalized weakness, worse over the last several weeks. He also had some weight loss. He now weighs less than 100 pounds. He was over 100 pounds approximately 6 months ago. He has had some frequent falls. He lives by himself, apparently according to his niece, he has refused to live with anyone. The patient is currently awake, alert, but he appears to be cachectic. He is not complaining of any chest pain or pressure. No nausea, vomiting. He has a cough productive of discolored sputum. It has been ongoing now for some time, increasing cough and mucus production over the last 2-3 days. He underwent a CT of the chest. I personally reviewed it. In comparison to the film of 12/2015, there no acute findings. 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 There are parenchymal changes in the left lower lobe. There appeared to be chronic. PAST MEDICAL HISTORY: Remarkable for chronic respiratory failure, COPD, cardiomyopathy, previously abnormal CT of the chest as described above with revealing pulmonary nodule, arthritis. PAST SURGICAL HISTORY: Status post pacemaker, right lobectomy in 1989. The etiology for the lobectomy is unclear. SOCIAL HISTORY: He quit tobacco in 1982. Lives by himself. REVIEW OF SYSTEMS: As indicated above, otherwise, a 10-point system was reviewed and negative. He is currently being evaluated by GI service for weakness and dysphagia. ALLERGIES: TO PENICILLIN. PHYSICAL EXAMINATION: GENERAL: The patient was in no respiratory distress. VITAL SIGNS: Stable. He is currently on 6 liters of oxygen, saturation greater than 92%. HEENT: Eyes, the sclerae were nonicteric. NECK: Jugular venous distention was not elevated. No lymphadenopathy. CHEST: Full expansion. LUNGS: Poor airway flow with no wheezes. CARDIOVASCULAR: Regular rate and rhythm with S1 and S2, no S3. ABDOMEN: Soft, nontender, nondistended. EXTREMITIES: No clubbing, cyanosis or edema. NEUROLOGIC: The patient was awake, alert, following commands. A detailed neuro exam was not performed. LABORATORY DATA: Reviewed. White count was slightly elevated. Hemoglobin and hematocrit were chronically low. Electrolytes were noted. BUN was elevated, creatinine was normal. UA was noted. CT of the chest and chest x-ray as indicated above. IMPRESSION: 1. Acute on chronic respiratory failure. 2. Abnormal CT of the chest revealing some pulmonary nodule, possibly new nodules in the right upper lobe and left lower lobe. 3. Clinical pneumonia with CT revealing left lower lobe parenchymal changes. 4. Weight loss. 5. Weakness. 6. History of Vogel's esophagus. 7. Status post lobectomy. PLAN: 1. From a pulmonary standpoint of view, I recommend treating him for pneumonia with antibiotics. 2. ____ consulted for the possibility of PEG placement. 3. We will await palliative care input to identify goals of care. 4. Continue current oxygen supplementation. We will reevaluate oxygen needs prior to discharge. I do appreciate the privilege in sharing in the patient's care. NURIS JORDAN MD DR: JAY/dedra JOB#: [id number] / [id number]
[2016-06-26 23:25] VITALS: BP 98/51
[2016-06-27] MEDS: HYDROcodone/APAP 5/325MG 1 TAB TABLET PO PRN ×3 (03:04→16:21)
[2016-06-27] MEDS: AMINO AC 3%/ELECTROLYTE/GLYCER 1,000 ML IV SCH ×2 (03:07→18:33)
[2016-06-27 03:15] VITALS: BP 94/46
[2016-06-27 05:24] LABS: BASO % 0 % (0-3); EOS % 1 % (0-3); HEMATOCRIT 27.5 % (39.0-53.0); HEMOGLOBIN 8.9 g/dL (13.0-17.5); LYMPH # 0.9 x10^3/uL (1.0-4.8); LYMPH % 8 % (24-48); MEAN CORPUSCULAR HEMOGLOBIN 29 pg (25-35); MEAN CORPUSCULAR HGB CONC 32 g/dL (31-37); MEAN CORPUSCULAR VOLUME 91 fL (79-100); MONO % 9 % (0-9); NEUT % 82 % (31-73); PLATELET COUNT 236 x10^3/uL (140-400); RED BLOOD COUNT 3.03 x10^6/uL (4.30-5.70); RED CELL DISTRIBUTION WIDTH 16.2 % (11.5-14.5)
[2016-06-27 05:51] LABS: ALBUMIN 2.3 g/dL (3.4-5.0); ALBUMIN/GLOBULIN RATIO 0.7 (1.0-1.7); CREATININE 0.7 mg/dL (0.7-1.3); GFR 130.6; POTASSIUM 4.7 mmol/L (3.5-5.1); TOTAL BILIRUBIN 0.6 mg/dL (0.2-1.0); TOTAL PROTEIN 5.7 g/dL (6.4-8.2)
[2016-06-27] MEDS: SUCRALFATE 1 GM/10 ML ORAL.SUSP. PO SCH ×4 (06:40→22:29)
[2016-06-27] MEDS: PANTOPRAZOLE 40 MG TABLET.DR. PO SCH ×2 (06:40→16:17)
[2016-06-27 07:10] VITALS: BP 89/58
[2016-06-27] MEDS: IPRATRPIUM/ALBUTEROL 0.5/2.5MG 3 ML NEBU. NEB SCH ×4 (07:34→20:04)
[2016-06-27] MEDS: BUDESONIDE 0.5 MG/2 ML NEBU. NEB SCH ×2 (07:35→20:03)
[2016-06-27] MEDS: FERROUS SULFATE 325 MG TABLET. PO SCH (08:22)
[2016-06-27] MEDS: LORazepam 0.5 MG TABLET PO PRN (08:22)
[2016-06-27] MEDS: FINASTERIDE 5 MG TABLET. PO SCH (08:22)
[2016-06-27] MEDS: ROFLUMILAST 500 MCG TABLET. PO SCH (08:22)
[2016-06-27] MEDS ORDERED: MORPHINE SULFATE 2 MG/ML DISP.SYRIN. IV PRN ×2 (09:15)
--- NOTE | 2016-06-27 09:15 | PDOC ---
PROGRESS NOTES Subjective Subjective discussed with daughter who is DPOA. ct chest results noted. nurse notes likely Pseudomonas in sputum penicillin caused hives in past. will change levaquin to Invanz. echo showed LVEF 30% but bp too low for ARB or beta stefani. still weak. says he walked some in therapy yesterday. daughter wants him to go to rehab hospital to get stronger before he returns home and needs time to get his house in order before returning with hospice. lab noted. transaminases elevated and will d/c atorvastatin. he declines a PEG. complains of left great toe pain and has a dystrophic great toe nail. ays iv fentanyl not helping with pain. Objective Objective Vital Signs Date Time Temp Pulse Resp B/P (MAP) Pulse Ox O2 Delivery O2 Flow Rate FiO2 06/27/16 08:22 18 Nasal Cannula 6.0 06/27/16 07:39 97 06/27/16 07:10 96.6 103 89/58 (68) 96.6 Intake and Output 06/27/16 07:00 Intake Total 3570 ml Output Total 2250 ml Balance 1320 ml Intake Oral 1520 ml IV Total 2050 ml Output Urine Total 2250 ml Physical Exam Abdomen: Soft Heart: Regular rate, Normal S1, Normal S2 Extremities: No clubbing, No edema General: Alert HEENT: Atraumatic Lungs: Other (decreased breath sounds) Neuro: Normal speech Psych/Mental Status: Mental status NL Skin: No rashes Assessment Assessment Problems1. Failure to thrive. 2. Weight loss with cachexia. 3. Multiple mechanical falls. 4. Severe chronic obstructive pulmonary disease. 5. Chronic respiratory failure with hypoxia. 6. Vogel's esophagus. 7. Solid food dysphagia. 8. Hyperlipidemia. elevated transaminases cardiomyopathy pseudomnas acute bronchitis Medical Problems: (1) Dehydration Status: Acute (2) Failure to thrive Status: Acute (3) Weakness Status: Acute Plan Plan of Care continue PPN PT and OT iv morphine and norco prn. d/c fentanyl iv xray left foot start iv Invanz d/c levaquin final sputum culture pending screen for [facility] eventual hospice at home Comment Review of Relevant I have reviewed the following items suzanne (where applicable) has been applied. Labs Laboratory Tests Test 06/25/16 21:11 06/25/16 22:30 06/26/16 05:35 06/26/16 15:35 White Blood Count 7.4 x10^3/uL (4.0-11.0) 11.2 x10^3/uL (4.0-11.0) Red Blood Count 3.88 x10^6/uL (4.30-5.70) 3.32 x10^6/uL (4.30-5.70) Hemoglobin 11.5 g/dL (13.0-17.5) 9.9 g/dL (13.0-17.5) Hematocrit 34.9 % (39.0-53.0) 29.4 % (39.0-53.0) Mean Corpuscular Volume 90 fL (79-100) 89 fL (79-100) Mean Corpuscular Hemoglobin 30 pg (25-35) 30 pg (25-35) Mean Corpuscular Hemoglobin Concent 33 g/dL (31-37) 34 g/dL (31-37) Red Cell Distribution Width 16.2 % (11.5-14.5) 16.1 % (11.5-14.5) Platelet Count 266 x10^3/uL (140-400) 266 x10^3/uL (140-400) Neutrophils (%) (Auto) 80 % (31-73) 82 % (31-73) Lymphocytes (%) (Auto) 9 % (24-48) 8 % (24-48) Monocytes (%) (Auto) 11 % (0-9) 9 % (0-9) Eosinophils (%) (Auto) 1 % (0-3) 0 % (0-3) Basophils (%) (Auto) 0 % (0-3) 0 % (0-3) Neutrophils # (Auto) 5.9 x10^3uL (1.8-7.7) 9.3 x10^3uL (1.8-7.7) Lymphocytes # (Auto) 0.6 x10^3/uL (1.0-4.8) 0.9 x10^3/uL (1.0-4.8) Monocytes # (Auto) 0.8 x10^3/uL (0.0-1.1) 1.0 x10^3/uL (0.0-1.1) Eosinophils # (Auto) 0.1 x10^3/uL (0.0-0.7) 0.0 x10^3/uL (0.0-0.7) Basophils # (Auto) 0.0 x10^3/uL (0.0-0.2) 0.0 x10^3/uL (0.0-0.2) Sodium Level 134 mmol/L (136-145) 137 mmol/L (136-145) Potassium Level 3.7 mmol/L (3.5-5.1) 4.1 mmol/L (3.5-5.1) Chloride Level 94 mmol/L (98-107) 98 mmol/L (98-107) Carbon Dioxide Level 38 mmol/L (21-32) 35 mmol/L (21-32) Anion Gap 2 (6-14) 4 (6-14) Blood Urea Nitrogen 42 mg/dL (8-26) 33 mg/dL (8-26) Creatinine 1.0 mg/dL (0.7-1.3) 0.8 mg/dL (0.7-1.3) Estimated GFR (Cockcroft-Gault) 86.6 112.0 Glucose Level 136 mg/dL (70-99) 92 mg/dL (70-99) Calcium Level 9.8 mg/dL (8.5-10.1) 8.8 mg/dL (8.5-10.1) Troponin I Quantitative < 0.017 ng/mL (0.000-0.055) Urine Collection Type Unknown Urine Color Yellow Urine Clarity Clear Urine pH 5.5 Urine Specific [place] 1.015 Urine Protein Negative mg/dL (NEG-TRACE) Urine Glucose (UA) Negative mg/dL (NEG) Urine Ketones (Stick) Negative mg/dL (NEG) Urine Blood Negative (NEG) Urine Nitrite Negative (NEG) Urine Bilirubin Negative (NEG) Urine Urobilinogen Dipstick 0.2 mg/dL (0.2 mg/dL) Urine Leukocyte Esterase Negative (NEG) Urine RBC Occ /HPF (0-2) Urine WBC Occ /HPF (0-4) Urine Squamous Epithelial Cells None /LPF Urine Bacteria 0 /HPF (0-FEW) Urine Hyaline Casts Few /HPF Urine Mucus Slight /LPF Erythrocyte Sedimentation Rate 32 (0-15) Test 06/27/16 04:45 White Blood Count 12.0 x10^3/uL (4.0-11.0) Red Blood Count 3.03 x10^6/uL (4.30-5.70) Hemoglobin 8.9 g/dL (13.0-17.5) Hematocrit 27.5 % (39.0-53.0) Mean Corpuscular Volume 91 fL (79-100) Mean Corpuscular Hemoglobin 29 pg (25-35) Mean Corpuscular Hemoglobin Concent 32 g/dL (31-37) Red Cell Distribution Width 16.2 % (11.5-14.5) Platelet Count 236 x10^3/uL (140-400) Neutrophils (%) (Auto) 82 % (31-73) Lymphocytes (%) (Auto) 8 % (24-48) Monocytes (%) (Auto) 9 % (0-9) Eosinophils (%) (Auto) 1 % (0-3) Basophils (%) (Auto) 0 % (0-3) Neutrophils # (Auto) 9.9 x10^3uL (1.8-7.7) Lymphocytes # (Auto) 0.9 x10^3/uL (1.0-4.8) Monocytes # (Auto) 1.0 x10^3/uL (0.0-1.1) Eosinophils # (Auto) 0.2 x10^3/uL (0.0-0.7) Basophils # (Auto) 0.0 x10^3/uL (0.0-0.2) Sodium Level 136 mmol/L (136-145) Potassium Level 4.7 mmol/L (3.5-5.1) Chloride Level 99 mmol/L (98-107) Carbon Dioxide Level 36 mmol/L (21-32) Anion Gap 1 (6-14) Blood Urea Nitrogen 13 mg/dL (8-26) Creatinine 0.7 mg/dL (0.7-1.3) Estimated GFR (Cockcroft-Gault) 130.6 BUN/Creatinine Ratio 19 (6-20) Glucose Level 104 mg/dL (70-99) Calcium Level 9.0 mg/dL (8.5-10.1) Total Bilirubin 0.6 mg/dL (0.2-1.0) Aspartate Amino Transf (AST/SGOT) 65 U/L (15-37) Alanine Aminotransferase (ALT/SGPT) 377 U/L (16-63) Alkaline Phosphatase 80 U/L (46-116) Creatine Kinase 89 U/L (39-308) Total Protein 5.7 g/dL (6.4-8.2) Albumin 2.3 g/dL (3.4-5.0) Albumin/Globulin Ratio 0.7 (1.0-1.7) Thyroid Stimulating Hormone (TSH) 1.440 uIU/mL (0.358-3.74) Laboratory Tests Test 06/26/16 15:35 06/27/16 04:45 Erythrocyte Sedimentation Rate 32 (0-15) White Blood Count 12.0 x10^3/uL (4.0-11.0) Red Blood Count 3.03 x10^6/uL (4.30-5.70) Hemoglobin 8.9 g/dL (13.0-17.5) Hematocrit 27.5 % (39.0-53.0) Mean Corpuscular Volume 91 fL (79-100) Mean Corpuscular Hemoglobin 29 pg (25-35) Mean Corpuscular Hemoglobin Concent 32 g/dL (31-37) Red Cell Distribution Width 16.2 % (11.5-14.5) Platelet Count 236 x10^3/uL (140-400) Neutrophils (%) (Auto) 82 % (31-73) Lymphocytes (%) (Auto) 8 % (24-48) Monocytes (%) (Auto) 9 % (0-9) Eosinophils (%) (Auto) 1 % (0-3) Basophils (%) (Auto) 0 % (0-3) Neutrophils # (Auto) 9.9 x10^3uL (1.8-7.7) Lymphocytes # (Auto) 0.9 x10^3/uL (1.0-4.8) Monocytes # (Auto) 1.0 x10^3/uL (0.0-1.1) Eosinophils # (Auto) 0.2 x10^3/uL (0.0-0.7) Basophils # (Auto) 0.0 x10^3/uL (0.0-0.2) Sodium Level 136 mmol/L (136-145) Potassium Level 4.7 mmol/L (3.5-5.1) Chloride Level 99 mmol/L (98-107) Carbon Dioxide Level 36 mmol/L (21-32) Anion Gap 1 (6-14) Blood Urea Nitrogen 13 mg/dL (8-26) Creatinine 0.7 mg/dL (0.7-1.3) Estimated GFR (Cockcroft-Gault) 130.6 BUN/Creatinine Ratio 19 (6-20) Glucose Level 104 mg/dL (70-99) Calcium Level 9.0 mg/dL (8.5-10.1) Total Bilirubin 0.6 mg/dL (0.2-1.0) Aspartate Amino Transf (AST/SGOT) 65 U/L (15-37) Alanine Aminotransferase (ALT/SGPT) 377 U/L (16-63) Alkaline Phosphatase 80 U/L (46-116) Creatine Kinase 89 U/L (39-308) Total Protein 5.7 g/dL (6.4-8.2) Albumin 2.3 g/dL (3.4-5.0) Albumin/Globulin Ratio 0.7 (1.0-1.7) Thyroid Stimulating Hormone (TSH) 1.440 uIU/mL (0.358-3.74) Microbiology 06/26/16 Gram Stain - Final, Complete Medications Current Medications Fentanyl Citrate (Fentanyl 2ml Vial) 50 mcg 1X ONCE IV Last administered on 22:16; Start 06/25/16 at 21:30; Stop 06/25/16 at 21:31; Status DC Sodium Chloride 1,000 ml @ 1,000 mls/hr 1X ONCE IV Last administered on 22:16; Start 06/25/16 at 21:30; Stop 06/25/16 at 22:29; Status DC Ondansetron HCl (Zofran) 4 mg PRN Q8HRS PRN IV NAUSEA/VOMITING Last administered on 06/26/16 09:38; Start 06/25/16 at 22:00; Stop 06/26/16 at 21:59 ; Status DC Fentanyl Citrate (Fentanyl 2ml Vial) 50 mcg PRN Q2HR PRN IV PAIN Last administered on 06/26/16 21:53; Start 06/25/16 at 22:00; Stop 06/26/16 at 21:59 ; Status DC Fentanyl Citrate (Fentanyl 2ml Vial) 50 mcg 1X ONCE IV Last administered on 22:51; Start 06/25/16 at 22:45; Stop 06/25/16 at 22:46; Status DC Sodium Chloride 1,000 ml @ 125 mls/hr 1X ONCE IV Last administered on 23:23; Start 06/25/16 at 23:00; Stop 06/26/16 at 06:59; Status DC Amino Acids/ Glycerin/ Electrolytes 1,000 ml @ 60 mls/hr [id number] IV Last administered on 06/27/16 03:07; Start 06/26/16 at 08:45 Albuterol/ Ipratropium (Duoneb) 3 ml RTQID NEB Last administered on 06/27/16 07:34; Start 06/26/16 at 12:00 Albuterol Sulfate (Ventolin Neb Soln) 2.5 mg PRN Q4HRS PRN NEB SHORTNESS OF BREATH; Start 06/26/16 at 09:15 Sucralfate (Carafate) 1 gm QIDACHS PO ; Start 06/26/16 at 11:30; Stop 06/26/16 at 11:30; Status DC Famotidine (Pepcid) 40 mg QHS PO Last administered on 06/26/16 21:47; Start at 21:00 Pantoprazole Sodium (Protonix) 40 mg DAILYAC PO ; Start 06/26/16 at 10:00; Stop 06/26/16 at 10:00; Status DC Acetaminophen/ Hydrocodone Bitart (Lortab 5/325) 1 tab Q6HRS PRN PO PAIN Last administered on 06/27/16 08:22; Start 06/26/16 at 08:45 Lorazepam (Ativan) 0.5 mg QID PRN PO ANXIETY / AGITATION Last administered on 08:22; Start 06/26/16 at 08:45 Atorvastatin Calcium (Lipitor) 20 mg QHS PO Last administered on 06/26/16 21: 47; Start 06/26/16 at 21:00; Stop 06/27/16 at 08:34; Status DC Finasteride (Proscar) 5 mg DAILY PO Last administered on 06/27/16 08:22; Start 06/26/16 at 09:00 Roflumilast (Daliresp) 500 mcg DAILY PO Last administered on 06/27/16 08:22; Start 06/26/16 at 09:00 Ferrous Sulfate (Feosol) 325 mg DAILYWBKFT PO Last administered on 06/27/16 08 :22; Start 06/26/16 at 10:00 Budesonide (Pulmicort) 0.5 mg RTBID NEB Last administered on 06/27/16 07:35; Start 06/26/16 at 20:00 Acetaminophen (Tylenol) 650 mg Q4HRS PRN PO MILD PAIN / TEMP; Start 06/26/16 at 08:45 Bisacodyl (Dulcolax Supp) 10 mg PRN DAILY PRN [place] CONSTIPATION; Start 06/26/16 at 08:45 Magnesium Hydroxide (Milk Of Magnesia) 2,400 mg PRN DAILY PRN PO CONSTIPATION; Start 06/26/16 at 08:45 Fentanyl Citrate (Fentanyl 2ml Vial) 50 mcg PRN Q2HR PRN IV PAIN; Start at 09:15 Sucralfate (Carafate) 1 gm QIDACHS PO Last administered on 06/27/16 06:40; Start 06/26/16 at 09:30 Pantoprazole Sodium (Protonix) 40 mg BIDAC PO Last administered on 06/27/16 06 :40; Start 06/26/16 at 10:00 Levofloxacin/ Dextrose 50 ml @ 50 mls/hr Q24H IV Last administered on 11:50; Start 06/26/16 at 12:00 Active Scripts Active Tylenol (Acetaminophen) 325 Mg Tablet 1-2 Tab PO QID Reported Guaifenesin 400 Mg Tablet 400 Mg PO QID Hydrocodone-Apap 10-325 (Hydrocodone Bit/Acetaminophen) 1 Each Tablet 1 Tab PO PRN Q4-6HRS PRN Daliresp (Roflumilast) 500 Mcg Tablet 1 Tab PO QODAY Proair Hfa Inhaler (Albuterol Sulfate) 8.5 Gm Hfa.aer.ad 1 Puff INH PRN Q4-6HRS PRN Advair 500-50 Diskus (Fluticasone/Salmeterol) 1 Each Disk.w.dev 1 Puff IH BID Potassium Chloride 20 Meq Tablet.er 20 Meq PO DAILY Ranitidine Hcl 300 Mg Tablet 1 Tab PO QHS Albuterol Sulfate Neb Soln (Albuterol Sulfate) 1.25 Mg/3 Ml Vial.neb 1 Vial NEB QID Flonase Allergy Relief (Fluticasone Propionate) 9.9 Ml [place].susp 2 Sprays NS DAILY Zolpidem Tartrate 5 Mg Tablet 1 Tab PO QHS PRN Coenzyme Q-10 (Ubidecarenone) 30 Mg Capsule 60 Mg PO TID Tylenol Extra Strength (Acetaminophen) 500 Mg Tablet 500 Mg PO Spiriva (Tiotropium Walker) 18 Mcg Cap.w.dev 1 Cap IH DAILY Lortab 5-325 mg Tablet (Hydrocodone/Acetaminophen) 1 Each Tablet 1 Tab PO HS PRN Flomax (Tamsulosin Hcl) 0.4 Mg Cap.er.24h 1 Cap PO DAILY Finasteride 5 Mg Tablet 1 Tab PO DAILY Lorazepam 0.5 Mg Tablet 1 Tab PO QID PRN Furosemide 40 Mg Tablet 1 Tab PO BID Atorvastatin Calcium 20 Mg Tablet 1 Tab PO DAILY Omeprazole 40 Mg Capsule. 1 Cap PO BID Vitals/I & O Vital Sign - Last 24 Hours 06/26/16 06/26/16 06/26/16 06/26/16 09:38 10:08 10:39 10:56 Temp 98.4 98.4 Pulse 100 Resp 18 18 18 16 B/P (MAP) 97/62 (74) Pulse Ox 98 O2 Delivery Nasal Cannula Nasal Cannula Nasal Cannula Nasal Cannula O2 Flow Rate 6.0 6.0 6.0 6.0 06/26/16 06/26/16 06/26/16 06/26/16 11:47 15:00 15:38 18:00 Temp 98.1 98.1 Pulse 101 Resp 16 18 B/P (MAP) 99/58 (72) Pulse Ox 97 98 97 O2 Delivery Room Air Nasal Cannula Room Air Nasal Cannula O2 Flow Rate 6.0 6.0 06/26/16 06/26/16 06/26/16 06/26/16 19:00 19:37 19:49 20:00 Temp 97.7 97.7 Pulse 91 Resp 20 18 20 B/P (MAP) 91/50 (64) Pulse Ox 99 97 98 O2 Delivery Nasal Cannula Nasal Cannula Nasal Cannula Nasal Cannula O2 Flow Rate 6.0 6.0 6.0 6.0 5/2206/26/16 06/26/16 06/26/16 20:27 20:29 21:53 23:25 Temp 97.8 97.8 Pulse 101 Resp 20 18 B/P (MAP) 98/51 (67) Pulse Ox 98 98 98 98 O2 Delivery Room Air Room Air Nasal Cannula Nasal Cannula O2 Flow Rate 6.0 6.0 06/27/16 06/27/16 06/27/16 06/27/16 03:04 03:15 07:10 07:37 Temp 98.3 96.6 98.3 96.6 Pulse 96 103 Resp 18 20 B/P (MAP) 94/46 (62) 89/58 (68) Pulse Ox 98 99 98 97 O2 Delivery Nasal Cannula Nasal Cannula Nasal Cannula Nasal Cannula O2 Flow Rate 6.0 6.0 6.0 6.0 06/27/16 06/27/16 07:39 08:22 Resp 18 Pulse Ox 97 O2 Delivery Nasal Cannula Nasal Cannula O2 Flow Rate 6.0 6.0 Intake and Output 06/26/16 06/26/16 06/27/16 15:00 23:00 07:00 Intake Total 2030 ml 240 ml 1300 ml Output Total 1250 ml 1000 ml Balance 2030 ml -1010 ml 300 ml SABINO ROMEO MD June 27, 2016 09:15
--- NOTE | 2016-06-27 09:42 | RAD ---
Left foot, 2 views, 06/27/2016: History: Toe pain There is patchy bony demineralization. There is mild degenerative change at the first MTP joint and at the midfoot level. No fracture or dislocation is identified. Arterial calcifications are present. IMPRESSION: 1. Demineralization. 2. Mild degenerative change. 3. No acute bony abnormality is detected.
[2016-06-27 10:47] VITALS: BP 91/41
[2016-06-27] MEDS ORDERED: ERTAPENEM 1 GM in IV NORMAL SALINE 50ML 50 ML IV ONE (11:00)
--- NOTE | 2016-06-27 11:57 | PDOC ---
Subjective: Subjective: Swallowing okay today. Doesn't want PEG. Objective: Objective: Reviewed notes - plans for rehab and Hospice in process. Vital Signs: Vital Signs Date Time Temp Pulse Resp B/P (MAP) Pulse Ox O2 Delivery O2 Flow Rate FiO2 06/27/16 11:46 Nasal Cannula 6.0 06/27/16 10:47 97.9 109 20 91/41 (58) 90 97.9 Labs: Laboratory Tests Test 06/26/16 15:35 06/27/16 04:45 Erythrocyte Sedimentation Rate 32 White Blood Count 12.0 x10^3/uL Red Blood Count 3.03 x10^6/uL Hemoglobin 8.9 g/dL Hematocrit 27.5 % Mean Corpuscular Volume 91 fL Mean Corpuscular Hemoglobin 29 pg Mean Corpuscular Hemoglobin Concent 32 g/dL Red Cell Distribution Width 16.2 % Platelet Count 236 x10^3/uL Neutrophils (%) (Auto) 82 % Lymphocytes (%) (Auto) 8 % Monocytes (%) (Auto) 9 % Eosinophils (%) (Auto) 1 % Basophils (%) (Auto) 0 % Neutrophils # (Auto) 9.9 x10^3uL Lymphocytes # (Auto) 0.9 x10^3/uL Monocytes # (Auto) 1.0 x10^3/uL Eosinophils # (Auto) 0.2 x10^3/uL Basophils # (Auto) 0.0 x10^3/uL Sodium Level 136 mmol/L Potassium Level 4.7 mmol/L Chloride Level 99 mmol/L Carbon Dioxide Level 36 mmol/L Anion Gap 1 Blood Urea Nitrogen 13 mg/dL Creatinine 0.7 mg/dL Estimated GFR (Cockcroft-Gault) 130.6 BUN/Creatinine Ratio 19 Glucose Level 104 mg/dL Calcium Level 9.0 mg/dL Total Bilirubin 0.6 mg/dL Aspartate Amino Transf (AST/SGOT) 65 U/L Alanine Aminotransferase (ALT/SGPT) 377 U/L Alkaline Phosphatase 80 U/L Creatine Kinase 89 U/L Total Protein 5.7 g/dL Albumin 2.3 g/dL Albumin/Globulin Ratio 0.7 Thyroid Stimulating Hormone (TSH) 1.440 uIU/mL PE: GEN: NAD, up to chair LUNGS: decreased HEART: RRR ABD: S/ND/NT NEURO/PSYCH: A & O 3 A/P: Weakness, decreased PO intake, weight loss, falls Dysphagia, esophageal dysmotility -manometry 2012 ---> hypotensive peristaltic activity -last EGD 10/2015 ---> jhony esophagitis treated w/ Nystatin --h/o Vogel's esophagus ---> diagnosed in 1997, last two biopsies negative, on PPI -intolerant to Domperidone, prefers not to try Reglan, at one point on E-mycin -tolerates liquid diet and pills; tired of Boost/Ensure -ESR elevated (32) Resp failure, pneumonia, abnormal chest CT -per pulm Elevated transaminases -Dr. Lopez stopped statin -- Pt declines PEG. Plans for rehab/Hospice. Elevated sed rate, attempted to order myasthenia panel but this is a restricted test. Other per Dr. Vazquez. GABRIELA MORGAN June 27, 2016 11:57
[2016-06-27 14:48] VITALS: BP 95/49
--- NOTE | 2016-06-27 15:02 | PDOC ---
PULMONARY PROGRESS NOTES Subjective pt with no increase soa feels better Vitals Vital Signs Date Time Temp Pulse Resp B/P (MAP) Pulse Ox O2 Delivery O2 Flow Rate FiO2 06/27/16 14:48 98.8 107 20 95/49 (64) 95 Nasal Cannula 6.0 98.8 ROS: No Nausea, No Chest Pain, No Abdominal Pain, No Increase Cough General: Alert Lungs: Clear Cardiovascular: S1, S2 Abdomen: Soft Neuro Exam: Alert Extremities: No Edema Skin: Warm Labs Laboratory Tests Test 06/25/16 21:11 06/25/16 22:30 06/26/16 05:35 06/26/16 15:35 White Blood Count 7.4 x10^3/uL (4.0-11.0) 11.2 x10^3/uL (4.0-11.0) Red Blood Count 3.88 x10^6/uL (4.30-5.70) 3.32 x10^6/uL (4.30-5.70) Hemoglobin 11.5 g/dL (13.0-17.5) 9.9 g/dL (13.0-17.5) Hematocrit 34.9 % (39.0-53.0) 29.4 % (39.0-53.0) Mean Corpuscular Volume 90 fL (79-100) 89 fL (79-100) Mean Corpuscular Hemoglobin 30 pg (25-35) 30 pg (25-35) Mean Corpuscular Hemoglobin Concent 33 g/dL (31-37) 34 g/dL (31-37) Red Cell Distribution Width 16.2 % (11.5-14.5) 16.1 % (11.5-14.5) Platelet Count 266 x10^3/uL (140-400) 266 x10^3/uL (140-400) Neutrophils (%) (Auto) 80 % (31-73) 82 % (31-73) Lymphocytes (%) (Auto) 9 % (24-48) 8 % (24-48) Monocytes (%) (Auto) 11 % (0-9) 9 % (0-9) Eosinophils (%) (Auto) 1 % (0-3) 0 % (0-3) Basophils (%) (Auto) 0 % (0-3) 0 % (0-3) Neutrophils # (Auto) 5.9 x10^3uL (1.8-7.7) 9.3 x10^3uL (1.8-7.7) Lymphocytes # (Auto) 0.6 x10^3/uL (1.0-4.8) 0.9 x10^3/uL (1.0-4.8) Monocytes # (Auto) 0.8 x10^3/uL (0.0-1.1) 1.0 x10^3/uL (0.0-1.1) Eosinophils # (Auto) 0.1 x10^3/uL (0.0-0.7) 0.0 x10^3/uL (0.0-0.7) Basophils # (Auto) 0.0 x10^3/uL (0.0-0.2) 0.0 x10^3/uL (0.0-0.2) Sodium Level 134 mmol/L (136-145) 137 mmol/L (136-145) Potassium Level 3.7 mmol/L (3.5-5.1) 4.1 mmol/L (3.5-5.1) Chloride Level 94 mmol/L (98-107) 98 mmol/L (98-107) Carbon Dioxide Level 38 mmol/L (21-32) 35 mmol/L (21-32) Anion Gap 2 (6-14) 4 (6-14) Blood Urea Nitrogen 42 mg/dL (8-26) 33 mg/dL (8-26) Creatinine 1.0 mg/dL (0.7-1.3) 0.8 mg/dL (0.7-1.3) Estimated GFR (Cockcroft-Gault) 86.6 112.0 Glucose Level 136 mg/dL (70-99) 92 mg/dL (70-99) Calcium Level 9.8 mg/dL (8.5-10.1) 8.8 mg/dL (8.5-10.1) Troponin I Quantitative < 0.017 ng/mL (0.000-0.055) Urine Collection Type Unknown Urine Color Yellow Urine Clarity Clear Urine pH 5.5 Urine Specific [place] 1.015 Urine Protein Negative mg/dL (NEG-TRACE) Urine Glucose (UA) Negative mg/dL (NEG) Urine Ketones (Stick) Negative mg/dL (NEG) Urine Blood Negative (NEG) Urine Nitrite Negative (NEG) Urine Bilirubin Negative (NEG) Urine Urobilinogen Dipstick 0.2 mg/dL (0.2 mg/dL) Urine Leukocyte Esterase Negative (NEG) Urine RBC Occ /HPF (0-2) Urine WBC Occ /HPF (0-4) Urine Squamous Epithelial Cells None /LPF Urine Bacteria 0 /HPF (0-FEW) Urine Hyaline Casts Few /HPF Urine Mucus Slight /LPF Erythrocyte Sedimentation Rate 32 (0-15) Test 06/27/16 04:45 White Blood Count 12.0 x10^3/uL (4.0-11.0) Red Blood Count 3.03 x10^6/uL (4.30-5.70) Hemoglobin 8.9 g/dL (13.0-17.5) Hematocrit 27.5 % (39.0-53.0) Mean Corpuscular Volume 91 fL (79-100) Mean Corpuscular Hemoglobin 29 pg (25-35) Mean Corpuscular Hemoglobin Concent 32 g/dL (31-37) Red Cell Distribution Width 16.2 % (11.5-14.5) Platelet Count 236 x10^3/uL (140-400) Neutrophils (%) (Auto) 82 % (31-73) Lymphocytes (%) (Auto) 8 % (24-48) Monocytes (%) (Auto) 9 % (0-9) Eosinophils (%) (Auto) 1 % (0-3) Basophils (%) (Auto) 0 % (0-3) Neutrophils # (Auto) 9.9 x10^3uL (1.8-7.7) Lymphocytes # (Auto) 0.9 x10^3/uL (1.0-4.8) Monocytes # (Auto) 1.0 x10^3/uL (0.0-1.1) Eosinophils # (Auto) 0.2 x10^3/uL (0.0-0.7) Basophils # (Auto) 0.0 x10^3/uL (0.0-0.2) Sodium Level 136 mmol/L (136-145) Potassium Level 4.7 mmol/L (3.5-5.1) Chloride Level 99 mmol/L (98-107) Carbon Dioxide Level 36 mmol/L (21-32) Anion Gap 1 (6-14) Blood Urea Nitrogen 13 mg/dL (8-26) Creatinine 0.7 mg/dL (0.7-1.3) Estimated GFR (Cockcroft-Gault) 130.6 BUN/Creatinine Ratio 19 (6-20) Glucose Level 104 mg/dL (70-99) Calcium Level 9.0 mg/dL (8.5-10.1) Total Bilirubin 0.6 mg/dL (0.2-1.0) Aspartate Amino Transf (AST/SGOT) 65 U/L (15-37) Alanine Aminotransferase (ALT/SGPT) 377 U/L (16-63) Alkaline Phosphatase 80 U/L (46-116) Creatine Kinase 89 U/L (39-308) Total Protein 5.7 g/dL (6.4-8.2) Albumin 2.3 g/dL (3.4-5.0) Albumin/Globulin Ratio 0.7 (1.0-1.7) Thyroid Stimulating Hormone (TSH) 1.440 uIU/mL (0.358-3.74) Laboratory Tests Test 06/26/16 15:35 06/27/16 04:45 Erythrocyte Sedimentation Rate 32 (0-15) White Blood Count 12.0 x10^3/uL (4.0-11.0) Red Blood Count 3.03 x10^6/uL (4.30-5.70) Hemoglobin 8.9 g/dL (13.0-17.5) Hematocrit 27.5 % (39.0-53.0) Mean Corpuscular Volume 91 fL (79-100) Mean Corpuscular Hemoglobin 29 pg (25-35) Mean Corpuscular Hemoglobin Concent 32 g/dL (31-37) Red Cell Distribution Width 16.2 % (11.5-14.5) Platelet Count 236 x10^3/uL (140-400) Neutrophils (%) (Auto) 82 % (31-73) Lymphocytes (%) (Auto) 8 % (24-48) Monocytes (%) (Auto) 9 % (0-9) Eosinophils (%) (Auto) 1 % (0-3) Basophils (%) (Auto) 0 % (0-3) Neutrophils # (Auto) 9.9 x10^3uL (1.8-7.7) Lymphocytes # (Auto) 0.9 x10^3/uL (1.0-4.8) Monocytes # (Auto) 1.0 x10^3/uL (0.0-1.1) Eosinophils # (Auto) 0.2 x10^3/uL (0.0-0.7) Basophils # (Auto) 0.0 x10^3/uL (0.0-0.2) Sodium Level 136 mmol/L (136-145) Potassium Level 4.7 mmol/L (3.5-5.1) Chloride Level 99 mmol/L (98-107) Carbon Dioxide Level 36 mmol/L (21-32) Anion Gap 1 (6-14) Blood Urea Nitrogen 13 mg/dL (8-26) Creatinine 0.7 mg/dL (0.7-1.3) Estimated GFR (Cockcroft-Gault) 130.6 BUN/Creatinine Ratio 19 (6-20) Glucose Level 104 mg/dL (70-99) Calcium Level 9.0 mg/dL (8.5-10.1) Total Bilirubin 0.6 mg/dL (0.2-1.0) Aspartate Amino Transf (AST/SGOT) 65 U/L (15-37) Alanine Aminotransferase (ALT/SGPT) 377 U/L (16-63) Alkaline Phosphatase 80 U/L (46-116) Creatine Kinase 89 U/L (39-308) Total Protein 5.7 g/dL (6.4-8.2) Albumin 2.3 g/dL (3.4-5.0) Albumin/Globulin Ratio 0.7 (1.0-1.7) Thyroid Stimulating Hormone (TSH) 1.440 uIU/mL (0.358-3.74) Medications Active Scripts Medications Dose Route/Sig Max Daily Dose Days Date Category Guaifenesin 400 Mg Tablet 400 Mg PO QID 06/26/16 Reported Hydrocodone-Apap 10-325 (Hydrocodone Bit/Acetaminophen) 1 Each Tablet 1 Tab PO PRN Q4-6HRS PRN 06/26/16 Reported Daliresp (Roflumilast) 500 Mcg Tablet 1 Tab PO QODAY 06/26/16 Reported Proair Hfa Inhaler (Albuterol Sulfate) 8.5 Gm Hfa.aer.ad 1 Puff INH PRN Q4-6HRS PRN 06/26/16 Reported Advair 500-50 Diskus (Fluticasone/Salmeterol) 1 Each Disk.w.dev 1 Puff IH BID 06/26/16 Reported Potassium Chloride 20 Meq Tablet.er 20 Meq PO DAILY 06/26/16 Reported Ranitidine Hcl 300 Mg Tablet 1 Tab PO QHS 06/26/16 Reported Albuterol Sulfate Neb Soln (Albuterol Sulfate) 1.25 Mg/3 Ml Vial.neb 1 Vial NEB QID 06/26/16 Reported Flonase Allergy Relief (Fluticasone Propionate) 9.9 Ml [place].susp 2 Sprays NS DAILY 06/26/16 Reported Zolpidem Tartrate 5 Mg Tablet 1 Tab PO QHS PRN 06/26/16 Reported Coenzyme Q-10 (Ubidecarenone) 30 Mg Capsule 60 Mg PO TID 06/26/16 Reported Tylenol (Acetaminophen) 325 Mg Tablet 1-2 Tab PO QID 06/06/16 Rx Tylenol Extra Strength (Acetaminophen) 500 Mg Tablet 500 Mg PO 10/14/15 Reported Spiriva (Tiotropium [place]) 18 Mcg Cap.w.dev 1 Cap IH DAILY 10/14/15 Reported Lortab 5-325 mg Tablet (Hydrocodone/Acetaminophen) 1 Each Tablet 1 Tab PO HS PRN 10/14/15 Reported Flomax (Tamsulosin Hcl) 0.4 Mg Cap.er.24h 1 Cap PO DAILY 10/14/15 Reported Finasteride 5 Mg Tablet 1 Tab PO DAILY 10/14/15 Reported Lorazepam 0.5 Mg Tablet 1 Tab PO QID PRN 10/14/15 Reported Furosemide 40 Mg Tablet 1 Tab PO BID 10/14/15 Reported Atorvastatin Calcium 20 Mg Tablet 1 Tab PO DAILY 10/14/15 Reported Omeprazole 40 Mg Capsule.dr 1 Cap PO BID 10/14/15 Reported Impression . 1. Acute on chronic respiratory failure. 2. Abnormal CT of the chest revealing some pulmonary nodule, possibly new nodules in the right upper lobe and left lower lobe. 3. Clinical pneumonia with CT revealing left lower lobe parenchymal changes. 4. Weight loss. 5. Weakness. 6. History of Vogel's esophagus. 7. Status post lobectomy. Plan . resp status is compensate will continue the same 1. From a pulmonary standpoint of view, I recommend treating him for pneumonia with antibiotics. 2. DECLINED PEG placement. 3. may need SNU 4. Continue current oxygen supplementation. We will reevaluate oxygen needs prior to discharge. NURIS JODRAN MD June 27, 2016 15:02
[2016-06-27 19:00] VITALS: BP 96/39
[2016-06-27] MEDS: FAMOTIDINE 20 MG TABLET. PO SCH (22:29)
[2016-06-27] MEDS: MEROPENEM 1 GM in IV NORMAL SALINE 100ML 100 ML IV SCH (22:29)
[2016-06-27 23:55] VITALS: BP 96/54
[2016-06-28] MEDS: LORazepam 0.5 MG TABLET PO PRN ×2 (00:09→09:57)
[2016-06-28] MEDS: HYDROcodone/APAP 5/325MG 1 TAB TABLET PO PRN (00:09)
[2016-06-28 03:36] VITALS: BP 105/60
[2016-06-28 07:00] VITALS: BP 99/54
[2016-06-28] MEDS: IPRATRPIUM/ALBUTEROL 0.5/2.5MG 3 ML NEBU. NEB SCH ×4 (07:51→19:37)
[2016-06-28] MEDS: BUDESONIDE 0.5 MG/2 ML NEBU. NEB SCH ×2 (07:51→19:37)
[2016-06-28] MEDS ORDERED: ERTAPENEM 1 GM in IV NORMAL SALINE 50ML 50 ML IV SCH (09:00)
[2016-06-28] MEDS: MEROPENEM 1 GM in IV NORMAL SALINE 100ML 100 ML IV SCH ×2 (09:00→20:41)
--- NOTE | 2016-06-28 09:48 | PDOC ---
PROGRESS NOTES Subjective Subjective feels the same. weak. constipated. discussed that he was denied at [facility] and waiting for acceptance at [facility]. Objective Objective Vital Signs Date Time Temp Pulse Resp B/P (MAP) Pulse Ox O2 Delivery O2 Flow Rate FiO2 06/28/16 08:00 98 Nasal Cannula 6.0 06/28/16 07:00 98.0 100 18 99/54 (69) 98.0 Intake and Output 06/28/16 07:00 Intake Total 6056 ml Output Total 2400 ml Balance 3656 ml Intake Oral 1080 ml IV Total 4976 ml Output Urine Total 2400 ml Physical Exam Abdomen: Soft Heart: Regular rate, Normal S1, Normal S2 Extremities: No edema General: Alert HEENT: Atraumatic Lungs: Clear to auscultation Neuro: Normal speech Psych/Mental Status: Mental status NL Skin: No rashes Assessment Assessment Problems1. Failure to thrive. 2. Weight loss with cachexia. 3. Multiple mechanical falls. 4. Severe chronic obstructive pulmonary disease. 5. Chronic respiratory failure with hypoxia. 6. Vogel's esophagus. 7. Solid food dysphagia. 8. Hyperlipidemia. elevated transaminases cardiomyopathy pseudomnas acute bronchitis constipation Medical Problems: (1) Dehydration Status: Acute (2) Failure to thrive Status: Acute (3) Weakness Status: Acute Plan Plan of Care continue iv cefepime PT and OT continue PPN but will d/c it when dismissed to SNF sputum culture pending lactulose today anticipate dismissal to SNF tomorrow if accepted Comment Review of Relevant I have reviewed the following items suzanne (where applicable) has been applied. Labs Laboratory Tests Test 06/26/16 15:35 06/27/16 04:45 Erythrocyte Sedimentation Rate 32 (0-15) White Blood Count 12.0 x10^3/uL (4.0-11.0) Red Blood Count 3.03 x10^6/uL (4.30-5.70) Hemoglobin 8.9 g/dL (13.0-17.5) Hematocrit 27.5 % (39.0-53.0) Mean Corpuscular Volume 91 fL (79-100) Mean Corpuscular Hemoglobin 29 pg (25-35) Mean Corpuscular Hemoglobin Concent 32 g/dL (31-37) Red Cell Distribution Width 16.2 % (11.5-14.5) Platelet Count 236 x10^3/uL (140-400) Neutrophils (%) (Auto) 82 % (31-73) Lymphocytes (%) (Auto) 8 % (24-48) Monocytes (%) (Auto) 9 % (0-9) Eosinophils (%) (Auto) 1 % (0-3) Basophils (%) (Auto) 0 % (0-3) Neutrophils # (Auto) 9.9 x10^3uL (1.8-7.7) Lymphocytes # (Auto) 0.9 x10^3/uL (1.0-4.8) Monocytes # (Auto) 1.0 x10^3/uL (0.0-1.1) Eosinophils # (Auto) 0.2 x10^3/uL (0.0-0.7) Basophils # (Auto) 0.0 x10^3/uL (0.0-0.2) Sodium Level 136 mmol/L (136-145) Potassium Level 4.7 mmol/L (3.5-5.1) Chloride Level 99 mmol/L (98-107) Carbon Dioxide Level 36 mmol/L (21-32) Anion Gap 1 (6-14) Blood Urea Nitrogen 13 mg/dL (8-26) Creatinine 0.7 mg/dL (0.7-1.3) Estimated GFR (Cockcroft-Gault) 130.6 BUN/Creatinine Ratio 19 (6-20) Glucose Level 104 mg/dL (70-99) Calcium Level 9.0 mg/dL (8.5-10.1) Total Bilirubin 0.6 mg/dL (0.2-1.0) Aspartate Amino Transf (AST/SGOT) 65 U/L (15-37) Alanine Aminotransferase (ALT/SGPT) 377 U/L (16-63) Alkaline Phosphatase 80 U/L (46-116) Creatine Kinase 89 U/L (39-308) Total Protein 5.7 g/dL (6.4-8.2) Albumin 2.3 g/dL (3.4-5.0) Albumin/Globulin Ratio 0.7 (1.0-1.7) Thyroid Stimulating Hormone (TSH) 1.440 uIU/mL (0.358-3.74) Microbiology 06/26/16 Gram Stain - Final, Complete Medications Current Medications Fentanyl Citrate (Fentanyl 2ml Vial) 50 mcg 1X ONCE IV Last administered on 22:16; Start 06/25/16 at 21:30; Stop 06/25/16 at 21:31; Status DC Sodium Chloride 1,000 ml @ 1,000 mls/hr 1X ONCE IV Last administered on 22:16; Start 06/25/16 at 21:30; Stop 06/25/16 at 22:29; Status DC Ondansetron HCl (Zofran) 4 mg PRN Q8HRS PRN IV NAUSEA/VOMITING Last administered on 06/26/16 09:38; Start 06/25/16 at 22:00; Stop 06/26/16 at 21:59 ; Status DC Fentanyl Citrate (Fentanyl 2ml Vial) 50 mcg PRN Q2HR PRN IV PAIN Last administered on 06/26/16 21:53; Start 06/25/16 at 22:00; Stop 06/26/16 at 21:59 ; Status DC Fentanyl Citrate (Fentanyl 2ml Vial) 50 mcg 1X ONCE IV Last administered on 22:51; Start 06/25/16 at 22:45; Stop 06/25/16 at 22:46; Status DC Sodium Chloride 1,000 ml @ 125 mls/hr 1X ONCE IV Last administered on 23:23; Start 06/25/16 at 23:00; Stop 06/26/16 at 06:59; Status DC Amino Acids/ Glycerin/ Electrolytes 1,000 ml @ 60 mls/hr [id number] IV Last administered on 06/27/16 18:33; Start 06/26/16 at 08:45 Albuterol/ Ipratropium (Duoneb) 3 ml RTQID NEB Last administered on 06/28/16 07:51; Start 06/26/16 at 12:00 Albuterol Sulfate (Ventolin Neb Soln) 2.5 mg PRN Q4HRS PRN NEB SHORTNESS OF BREATH; Start 06/26/16 at 09:15 Sucralfate (Carafate) 1 gm QIDACHS PO ; Start 06/26/16 at 11:30; Stop 06/26/16 at 11:30; Status DC Famotidine (Pepcid) 40 mg QHS PO Last administered on 06/27/16 22:29; Start at 21:00 Pantoprazole Sodium (Protonix) 40 mg DAILYAC PO ; Start 06/26/16 at 10:00; Stop 06/26/16 at 10:00; Status DC Acetaminophen/ Hydrocodone Bitart (Lortab 5/325) 1 tab Q6HRS PRN PO PAIN Last administered on 06/28/16 00:09; Start 06/26/16 at 08:45 Lorazepam (Ativan) 0.5 mg QID PRN PO ANXIETY / AGITATION Last administered on 00:09; Start 06/26/16 at 08:45 Atorvastatin Calcium (Lipitor) 20 mg QHS PO Last administered on 06/26/16 21: 47; Start 06/26/16 at 21:00; Stop 06/27/16 at 08:34; Status DC Finasteride (Proscar) 5 mg DAILY PO Last administered on 06/27/16 08:22; Start 06/26/16 at 09:00 Roflumilast (Daliresp) 500 mcg DAILY PO Last administered on 06/27/16 08:22; Start 06/26/16 at 09:00 Ferrous Sulfate (Feosol) 325 mg [id number] PO Last administered on 06/27/16 08 :22; Start 06/26/16 at 10:00 Budesonide (Pulmicort) 0.5 mg RTBID NEB Last administered on 06/28/16 07:51; Start 06/26/16 at 20:00 Acetaminophen (Tylenol) 650 mg Q4HRS PRN PO MILD PAIN / TEMP; Start 06/26/16 at 08:45 Bisacodyl (Dulcolax Supp) 10 mg PRN DAILY PRN LA CONSTIPATION; Start 06/26/16 at 08:45 Magnesium Hydroxide (Milk Of Magnesia) 2,400 mg PRN DAILY PRN PO CONSTIPATION; Start 06/26/16 at 08:45 Fentanyl Citrate (Fentanyl 2ml Vial) 50 mcg PRN Q2HR PRN IV PAIN; Start at 09:15; Stop 06/27/16 at 09:08; Status DC Sucralfate (Carafate) 1 gm QIDACHS PO Last administered on 06/27/16 22:29; Start 06/26/16 at 09:30 Pantoprazole Sodium (Protonix) 40 mg BIDAC PO Last administered on 06/27/16 16 :17; Start 06/26/16 at 10:00 Levofloxacin/ Dextrose 50 ml @ 50 mls/hr Q24H IV Last administered on 11:50; Start 06/26/16 at 12:00; Stop 06/27/16 at 09:08; Status DC Ertapenem 1 gm/ Sodium Chloride 50 ml @ 100 mls/hr Q24H IV ; Start 06/28/16 at 09:00; Stop 06/28/16 at 09:00; Status DC Morphine Sulfate 2 mg PRN Q4HRS PRN IV PAIN; Start 06/27/16 at 09:15 Morphine Sulfate 1 mg PRN Q4HRS PRN IV PAIN; Start 06/27/16 at 09:15 Ertapenem 1 gm/ Sodium Chloride 50 ml @ 100 mls/hr ONCE ONCE IV Last administered on 06/27/16 11:44; Start 06/27/16 at 11:00; Stop 06/27/16 at 11:29 ; Status DC Meropenem 1 gm/ Sodium Chloride 100 ml @ 200 mls/hr Q12HR IV Last administered on 06/27/16 22:29; Start 06/27/16 at 21:00 Active Scripts Active Tylenol (Acetaminophen) 325 Mg Tablet 1-2 Tab PO QID Reported Guaifenesin 400 Mg Tablet 400 Mg PO QID Hydrocodone-Apap 10-325 (Hydrocodone Bit/Acetaminophen) 1 Each Tablet 1 Tab PO PRN Q4-6HRS PRN Daliresp (Roflumilast) 500 Mcg Tablet 1 Tab PO QODAY Proair Hfa Inhaler (Albuterol Sulfate) 8.5 Gm Hfa.aer.ad 1 Puff INH PRN Q4-6HRS PRN Advair 500-50 Diskus (Fluticasone/Salmeterol) 1 Each Disk.w.dev 1 Puff IH BID Potassium Chloride 20 Meq Tablet.er 20 Meq PO DAILY Ranitidine Hcl 300 Mg Tablet 1 Tab PO QHS Albuterol Sulfate Neb Soln (Albuterol Sulfate) 1.25 Mg/3 Ml Vial.neb 1 Vial NEB QID Flonase Allergy Relief (Fluticasone Propionate) 9.9 Ml [place].susp 2 Sprays NS DAILY Zolpidem Tartrate 5 Mg Tablet 1 Tab PO QHS PRN Coenzyme Q-10 (Ubidecarenone) 30 Mg Capsule 60 Mg PO TID Tylenol Extra Strength (Acetaminophen) 500 Mg Tablet 500 Mg PO Spiriva (Tiotropium [place]) 18 Mcg Cap.w.dev 1 Cap IH DAILY Lortab 5-325 mg Tablet (Hydrocodone/Acetaminophen) 1 Each Tablet 1 Tab PO HS PRN Flomax (Tamsulosin Hcl) 0.4 Mg Cap.er.24h 1 Cap PO DAILY Finasteride 5 Mg Tablet 1 Tab PO DAILY Lorazepam 0.5 Mg Tablet 1 Tab PO QID PRN Furosemide 40 Mg Tablet 1 Tab PO BID Atorvastatin Calcium 20 Mg Tablet 1 Tab PO DAILY Omeprazole 40 Mg Capsule. 1 Cap PO BID Vitals/I & O Vital Sign - Last 24 Hours 06/27/16 06/27/16 06/27/16 06/27/16 10:47 11:46 14:48 15:04 Temp 97.9 98.8 97.9 98.8 Pulse 109 107 Resp 20 20 B/P (MAP) 91/41 (58) 95/49 (64) Pulse Ox 90 95 O2 Delivery Room Air Nasal Cannula Nasal Cannula Nasal Cannula O2 Flow Rate 6.0 6.0 6.0 06/27/16 06/27/16 06/27/16 06/27/16 16:21 19:00 20:00 20:06 Temp 98.4 98.4 Pulse 108 Resp 18 19 B/P (MAP) 96/39 (58) Pulse Ox 98 98 O2 Delivery Nasal Cannula Nasal Cannula Nasal Cannula Nasal Cannula O2 Flow Rate 6.0 6.0 6.0 6.0 06/27/16 06/27/16 06/28/16 06/28/16 20:08 23:55 00:09 01:09 Temp 98.2 98.2 Pulse 105 Resp 18 18 12 B/P (MAP) 96/54 (68) Pulse Ox 98 96 96 96 O2 Delivery Nasal Cannula Nasal Cannula Nasal Cannula Nasal Cannula O2 Flow Rate 6.0 6.0 6.0 6.0 06/28/16 06/28/16 06/28/16 06/28/16 03:36 07:00 07:54 08:00 Temp 98.1 98.0 98.1 98.0 Pulse 99 100 Resp 18 18 B/P (MAP) 105/60 (75) 99/54 (69) Pulse Ox 99 98 98 98 O2 Delivery Nasal Cannula Nasal Cannula Nasal Cannula Nasal Cannula O2 Flow Rate 6.0 6.0 6.0 6.0 Intake and Output 06/27/16 06/27/16 06/28/16 15:00 23:00 07:00 Intake Total 890 ml 1240 ml 3926 ml Output Total 950 ml 1450 ml Balance -60 ml 1240 ml 2476 ml Nutrition Consultation Dietary Evaluation: Recommendations by RD: PPN/TPN, Add supplement feedings Comments: magic cup and boost pudding to meals continue ppn at this time Expected Outcomes/Goals: to meet > 75% est nutr needs Interpretation of weight loss: >20% in 1 year Malnutrition Findings: Food and Nutrition Intake (Sev: <50% est energy req 5days Body Fat Depletion (Non Severe: Mild Depletion Weight Status: Underweight SABINO ROMEO MD June 28, 2016 09:47
[2016-06-28] MEDS: SUCRALFATE 1 GM/10 ML ORAL.SUSP. PO SCH ×4 (09:56→20:40)
[2016-06-28] MEDS: PANTOPRAZOLE 40 MG TABLET.DR. PO SCH ×2 (09:56→16:30)
[2016-06-28] MEDS: FINASTERIDE 5 MG TABLET. PO SCH (09:56)
[2016-06-28] MEDS: ROFLUMILAST 500 MCG TABLET. PO SCH (09:57)
[2016-06-28] MEDS: FERROUS SULFATE 325 MG TABLET. PO SCH (09:57)
[2016-06-28] MEDS: AMINO AC 3%/ELECTROLYTE/GLYCER 1,000 ML IV SCH (10:19)
[2016-06-28 11:00] VITALS: BP 100/54
[2016-06-28] MEDS: LACTULOSE 20 GM/30 ML SOLUTION. PO SCH ×2 (11:00→20:41)
--- NOTE | 2016-06-28 12:22 | PDOC ---
Subjective: Subjective: Hasn't had a BM in a few days, abd feels "tight." Swallowing okay today. Asks about using a Magic Bullet to blend food at home. Objective: Vital Signs: Vital Signs Date Time Temp Pulse Resp B/P (MAP) Pulse Ox O2 Delivery O2 Flow Rate FiO2 06/28/16 11:07 98 Nasal Cannula 5.0 06/28/16 11:00 98.1 115 16 100/54 (69) 98.1 PE: GEN: NAD LUNGS: CTAB HEART: RRR ABD: S/ND/NT NEURO/PSYCH: A & O 3 A/P: Dysphagia, esophageal dysmotility, weight loss -extensive workup (see consult note) previously -declines PEG Constipation -note addition of lactulose -- Note accepted to rehab. Added Miralax and Dulcolax (which he uses at home) for PRN use. GABRIELA MORGAN June 28, 2016 12:22
[2016-06-28] MEDS ORDERED: POLYETHYLENE GLYCOL 3350 17 GM PACKET. PO PRN (12:30)
[2016-06-28] MEDS ORDERED: BISACODYL 5 MG TABLET.DR. PO PRN (12:30)
--- NOTE | 2016-06-28 12:31 | PDOC ---
PULMONARY PROGRESS NOTES Subjective pt with no increase soa feels better Vitals Vital Signs Date Time Temp Pulse Resp B/P (MAP) Pulse Ox O2 Delivery O2 Flow Rate FiO2 06/28/16 11:07 98 Nasal Cannula 5.0 06/28/16 11:00 98.1 115 16 100/54 (69) 98.1 ROS: No Nausea, No Chest Pain, No Abdominal Pain, No Increase Cough General: Alert Lungs: Clear Cardiovascular: S1, S2 Abdomen: Soft Neuro Exam: Alert Extremities: No Edema Skin: Warm Labs Laboratory Tests Test 06/26/16 15:35 06/27/16 04:45 Erythrocyte Sedimentation Rate 32 (0-15) White Blood Count 12.0 x10^3/uL (4.0-11.0) Red Blood Count 3.03 x10^6/uL (4.30-5.70) Hemoglobin 8.9 g/dL (13.0-17.5) Hematocrit 27.5 % (39.0-53.0) Mean Corpuscular Volume 91 fL (79-100) Mean Corpuscular Hemoglobin 29 pg (25-35) Mean Corpuscular Hemoglobin Concent 32 g/dL (31-37) Red Cell Distribution Width 16.2 % (11.5-14.5) Platelet Count 236 x10^3/uL (140-400) Neutrophils (%) (Auto) 82 % (31-73) Lymphocytes (%) (Auto) 8 % (24-48) Monocytes (%) (Auto) 9 % (0-9) Eosinophils (%) (Auto) 1 % (0-3) Basophils (%) (Auto) 0 % (0-3) Neutrophils # (Auto) 9.9 x10^3uL (1.8-7.7) Lymphocytes # (Auto) 0.9 x10^3/uL (1.0-4.8) Monocytes # (Auto) 1.0 x10^3/uL (0.0-1.1) Eosinophils # (Auto) 0.2 x10^3/uL (0.0-0.7) Basophils # (Auto) 0.0 x10^3/uL (0.0-0.2) Sodium Level 136 mmol/L (136-145) Potassium Level 4.7 mmol/L (3.5-5.1) Chloride Level 99 mmol/L (98-107) Carbon Dioxide Level 36 mmol/L (21-32) Anion Gap 1 (6-14) Blood Urea Nitrogen 13 mg/dL (8-26) Creatinine 0.7 mg/dL (0.7-1.3) Estimated GFR (Cockcroft-Gault) 130.6 BUN/Creatinine Ratio 19 (6-20) Glucose Level 104 mg/dL (70-99) Calcium Level 9.0 mg/dL (8.5-10.1) Total Bilirubin 0.6 mg/dL (0.2-1.0) Aspartate Amino Transf (AST/SGOT) 65 U/L (15-37) Alanine Aminotransferase (ALT/SGPT) 377 U/L (16-63) Alkaline Phosphatase 80 U/L (46-116) Creatine Kinase 89 U/L (39-308) Total Protein 5.7 g/dL (6.4-8.2) Albumin 2.3 g/dL (3.4-5.0) Albumin/Globulin Ratio 0.7 (1.0-1.7) Thyroid Stimulating Hormone (TSH) 1.440 uIU/mL (0.358-3.74) Medications Active Scripts Medications Dose Route/Sig Max Daily Dose Days Date Category Guaifenesin 400 Mg Tablet 400 Mg PO QID 06/26/16 Reported Hydrocodone-Apap 10-325 (Hydrocodone Bit/Acetaminophen) 1 Each Tablet 1 Tab PO PRN Q4-6HRS PRN 06/26/16 Reported Daliresp (Roflumilast) 500 Mcg Tablet 1 Tab PO QODAY 06/26/16 Reported Proair Hfa Inhaler (Albuterol Sulfate) 8.5 Gm Hfa.aer.ad 1 Puff INH PRN Q4-6HRS PRN 06/26/16 Reported Advair 500-50 Diskus (Fluticasone/Salmeterol) 1 Each Disk.w.dev 1 Puff IH BID 06/26/16 Reported Potassium Chloride 20 Meq Tablet.er 20 Meq PO DAILY 06/26/16 Reported Ranitidine Hcl 300 Mg Tablet 1 Tab PO QHS 06/26/16 Reported Albuterol Sulfate Neb Soln (Albuterol Sulfate) 1.25 Mg/3 Ml Vial.neb 1 Vial NEB QID 06/26/16 Reported Flonase Allergy Relief (Fluticasone Propionate) 9.9 Ml Kirwin.susp 2 Sprays NS DAILY 06/26/16 Reported Zolpidem Tartrate 5 Mg Tablet 1 Tab PO QHS PRN 06/26/16 Reported Coenzyme Q-10 (Ubidecarenone) 30 Mg Capsule 60 Mg PO TID 06/26/16 Reported Tylenol (Acetaminophen) 325 Mg Tablet 1-2 Tab PO QID 06/06/16 Rx Tylenol Extra Strength (Acetaminophen) 500 Mg Tablet 500 Mg PO 10/14/15 Reported Spiriva (Tiotropium Malcom) 18 Mcg Cap.w.dev 1 Cap IH DAILY 10/14/15 Reported Lortab 5-325 mg Tablet (Hydrocodone/Acetaminophen) 1 Each Tablet 1 Tab PO HS PRN 10/14/15 Reported Flomax (Tamsulosin Hcl) 0.4 Mg Cap.er.24h 1 Cap PO DAILY 10/14/15 Reported Finasteride 5 Mg Tablet 1 Tab PO DAILY 10/14/15 Reported Lorazepam 0.5 Mg Tablet 1 Tab PO QID PRN 10/14/15 Reported Furosemide 40 Mg Tablet 1 Tab PO BID 10/14/15 Reported Atorvastatin Calcium 20 Mg Tablet 1 Tab PO DAILY 10/14/15 Reported Omeprazole 40 Mg Capsule.dr 1 Cap PO BID 10/14/15 Reported Impression . 1. Acute on chronic respiratory failure. 2. Abnormal CT of the chest revealing some pulmonary nodule, possibly new nodules in the right upper lobe and left lower lobe. 3. Clinical pneumonia with CT revealing left lower lobe parenchymal changes. 4. Weight loss. 5. Weakness. 6. History of Vogel's esophagus. 7. Status post lobectomy. Plan . SCHEDULE FOR SNU WILL NEED ORAL ANITBX FOR ADDITIONAL 7 DAYS 1. From a pulmonary standpoint of view, I recommend treating him for pneumonia with antibiotics. 2. DECLINED PEG placement. 3. may need SNU 4. Continue current oxygen supplementation. We will reevaluate oxygen needs prior to discharge. NURIS JORDAN MD June 28, 2016 12:30
[2016-06-28 15:00] VITALS: BP 97/56
[2016-06-28 19:00] VITALS: BP 97/61
[2016-06-28] MEDS: FAMOTIDINE 20 MG TABLET. PO SCH (20:41)
[2016-06-28 23:00] VITALS: BP 97/63
[2016-06-29] MEDS: LORazepam 0.5 MG TABLET PO PRN (03:18)
[2016-06-29 06:08] LABS: BASO % 0 % (0-3); EOS % 1 % (0-3); HEMATOCRIT 26.8 % (39.0-53.0); HEMOGLOBIN 8.9 g/dL (13.0-17.5); LYMPH # 0.9 x10^3/uL (1.0-4.8); LYMPH % 10 % (24-48); MEAN CORPUSCULAR HEMOGLOBIN 30 pg (25-35); MEAN CORPUSCULAR HGB CONC 33 g/dL (31-37); MEAN CORPUSCULAR VOLUME 90 fL (79-100); MONO % 10 % (0-9); NEUT % 79 % (31-73); PLATELET COUNT 262 x10^3/uL (140-400); RED BLOOD COUNT 2.99 x10^6/uL (4.30-5.70); WHITE BLOOD COUNT 9.5 x10^3/uL (4.0-11.0)
[2016-06-29 06:25] LABS: CALCIUM 9.4 mg/dL (8.5-10.1); CREATININE 0.6 mg/dL (0.7-1.3); GFR 156.1; MAGNESIUM 2.3 mg/dL (1.8-2.4); POTASSIUM 4.4 mmol/L (3.5-5.1)
[2016-06-29 07:20] VITALS: BP 113/63
[2016-06-29] MEDS: IPRATRPIUM/ALBUTEROL 0.5/2.5MG 3 ML NEBU. NEB SCH ×2 (07:32→11:32)
[2016-06-29] MEDS: BUDESONIDE 0.5 MG/2 ML NEBU. NEB SCH (07:32)
[2016-06-29] MEDS: FERROUS SULFATE 325 MG TABLET. PO SCH (08:56)
[2016-06-29] MEDS: MEROPENEM 1 GM in IV NORMAL SALINE 100ML 100 ML IV SCH (08:56)
[2016-06-29] MEDS: FINASTERIDE 5 MG TABLET. PO SCH (08:56)
[2016-06-29] MEDS: PANTOPRAZOLE 40 MG TABLET.DR. PO SCH (08:56)
[2016-06-29] MEDS: SUCRALFATE 1 GM/10 ML ORAL.SUSP. PO SCH (08:56)
[2016-06-29] MEDS: ROFLUMILAST 500 MCG TABLET. PO SCH (08:56)
[2016-06-29] MEDS: AMINO AC 3%/ELECTROLYTE/GLYCER 1,000 ML IV SCH (08:57)
--- NOTE | 2016-06-29 10:23 | PDOC ---
PROGRESS NOTES Subjective Subjective complains of insmonia and will order ambein at [facility] prn. had a BM yesterday. discussed he was accepted at [facility] [place] [facility] and he concurs to go today.. has occasional cough Objective Objective Vital Signs Date Time Temp Pulse Resp B/P (MAP) Pulse Ox O2 Delivery O2 Flow Rate FiO2 06/29/16 07:34 97 Nasal Cannula 3.0 06/29/16 07:20 96.6 100 18 113/63 (80) 96.6 Intake and Output 06/29/16 07:00 Intake Total 1977 ml Output Total 2500 ml Balance -523 ml Intake Oral 1250 ml IV Total 727 ml Output Urine Total 2500 ml # Bowel Movements 1 Physical Exam Abdomen: Soft Heart: Regular rate, Normal S1, Normal S2 Extremities: No edema General: Alert, Cooperative Lungs: Clear to auscultation Neuro: Normal speech Psych/Mental Status: Mental status NL Skin: No rashes Assessment Assessment Problems Failure to thrive. 2. Weight loss with cachexia. 3. Multiple mechanical falls. 4. Severe chronic obstructive pulmonary disease. 5. Chronic respiratory failure with hypoxia. 6. Vogel's esophagus. 7. Solid food dysphagia. 8. Hyperlipidemia. elevated transaminases cardiomyopathy acute bronchitis Medical Problems: (1) Dehydration Status: Acute (2) Failure to thrive Status: Acute (3) Weakness Status: Acute Plan Plan of Care d/c PPN elyien prn dismiss today to SNF continue vines per patient request hospice switch to [facility] Comment Review of Relevant I have reviewed the following items suzanne (where applicable) has been applied. Labs Laboratory Tests Test 06/29/16 04:45 White Blood Count 9.5 x10^3/uL (4.0-11.0) Red Blood Count 2.99 x10^6/uL (4.30-5.70) Hemoglobin 8.9 g/dL (13.0-17.5) Hematocrit 26.8 % (39.0-53.0) Mean Corpuscular Volume 90 fL (79-100) Mean Corpuscular Hemoglobin 30 pg (25-35) Mean Corpuscular Hemoglobin Concent 33 g/dL (31-37) Red Cell Distribution Width 17.0 % (11.5-14.5) Platelet Count 262 x10^3/uL (140-400) Neutrophils (%) (Auto) 79 % (31-73) Lymphocytes (%) (Auto) 10 % (24-48) Monocytes (%) (Auto) 10 % (0-9) Eosinophils (%) (Auto) 1 % (0-3) Basophils (%) (Auto) 0 % (0-3) Neutrophils # (Auto) 7.5 x10^3uL (1.8-7.7) Lymphocytes # (Auto) 0.9 x10^3/uL (1.0-4.8) Monocytes # (Auto) 1.0 x10^3/uL (0.0-1.1) Eosinophils # (Auto) 0.1 x10^3/uL (0.0-0.7) Basophils # (Auto) 0.0 x10^3/uL (0.0-0.2) Sodium Level 137 mmol/L (136-145) Potassium Level 4.4 mmol/L (3.5-5.1) Chloride Level 101 mmol/L (98-107) Carbon Dioxide Level 33 mmol/L (21-32) Anion Gap 3 (6-14) Blood Urea Nitrogen 10 mg/dL (8-26) Creatinine 0.6 mg/dL (0.7-1.3) Estimated GFR (Cockcroft-Gault) 156.1 Glucose Level 93 mg/dL (70-99) Calcium Level 9.4 mg/dL (8.5-10.1) Magnesium Level 2.3 mg/dL (1.8-2.4) Laboratory Tests Test 06/29/16 04:45 White Blood Count 9.5 x10^3/uL (4.0-11.0) Red Blood Count 2.99 x10^6/uL (4.30-5.70) Hemoglobin 8.9 g/dL (13.0-17.5) Hematocrit 26.8 % (39.0-53.0) Mean Corpuscular Volume 90 fL (79-100) Mean Corpuscular Hemoglobin 30 pg (25-35) Mean Corpuscular Hemoglobin Concent 33 g/dL (31-37) Red Cell Distribution Width 17.0 % (11.5-14.5) Platelet Count 262 x10^3/uL (140-400) Neutrophils (%) (Auto) 79 % (31-73) Lymphocytes (%) (Auto) 10 % (24-48) Monocytes (%) (Auto) 10 % (0-9) Eosinophils (%) (Auto) 1 % (0-3) Basophils (%) (Auto) 0 % (0-3) Neutrophils # (Auto) 7.5 x10^3uL (1.8-7.7) Lymphocytes # (Auto) 0.9 x10^3/uL (1.0-4.8) Monocytes # (Auto) 1.0 x10^3/uL (0.0-1.1) Eosinophils # (Auto) 0.1 x10^3/uL (0.0-0.7) Basophils # (Auto) 0.0 x10^3/uL (0.0-0.2) Sodium Level 137 mmol/L (136-145) Potassium Level 4.4 mmol/L (3.5-5.1) Chloride Level 101 mmol/L (98-107) Carbon Dioxide Level 33 mmol/L (21-32) Anion Gap 3 (6-14) Blood Urea Nitrogen 10 mg/dL (8-26) Creatinine 0.6 mg/dL (0.7-1.3) Estimated GFR (Cockcroft-Gault) 156.1 Glucose Level 93 mg/dL (70-99) Calcium Level 9.4 mg/dL (8.5-10.1) Magnesium Level 2.3 mg/dL (1.8-2.4) Microbiology 06/26/16 Gram Stain - Final, Complete Medications Current Medications Fentanyl Citrate (Fentanyl 2ml Vial) 50 mcg 1X ONCE IV Last administered on 22:16; Start 06/25/16 at 21:30; Stop 06/25/16 at 21:31; Status DC Sodium Chloride 1,000 ml @ 1,000 mls/hr 1X ONCE IV Last administered on 22:16; Start 06/25/16 at 21:30; Stop 06/25/16 at 22:29; Status DC Ondansetron HCl (Zofran) 4 mg PRN Q8HRS PRN IV NAUSEA/VOMITING Last administered on 06/26/16 09:38; Start 06/25/16 at 22:00; Stop 06/26/16 at 21:59 ; Status DC Fentanyl Citrate (Fentanyl 2ml Vial) 50 mcg PRN Q2HR PRN IV PAIN Last administered on 06/26/16 21:53; Start 06/25/16 at 22:00; Stop 06/26/16 at 21:59 ; Status DC Fentanyl Citrate (Fentanyl 2ml Vial) 50 mcg 1X ONCE IV Last administered on 22:51; Start 06/25/16 at 22:45; Stop 06/25/16 at 22:46; Status DC Sodium Chloride 1,000 ml @ 125 mls/hr 1X ONCE IV Last administered on 23:23; Start 06/25/16 at 23:00; Stop 06/26/16 at 06:59; Status DC Amino Acids/ Glycerin/ Electrolytes 1,000 ml @ 60 mls/hr [id number] IV Last administered on 06/29/16 08:57; Start 06/26/16 at 08:45 Albuterol/ Ipratropium (Duoneb) 3 ml RTQID NEB Last administered on 06/29/16 07:32; Start 06/26/16 at 12:00 Albuterol Sulfate (Ventolin Neb Soln) 2.5 mg PRN Q4HRS PRN NEB SHORTNESS OF BREATH; Start 06/26/16 at 09:15 Sucralfate (Carafate) 1 gm QIDACHS PO ; Start 06/26/16 at 11:30; Stop 06/26/16 at 11:30; Status DC Famotidine (Pepcid) 40 mg QHS PO Last administered on 06/28/16 20:41; Start at 21:00 Pantoprazole Sodium (Protonix) 40 mg DAILYAC PO ; Start 06/26/16 at 10:00; Stop 06/26/16 at 10:00; Status DC Acetaminophen/ Hydrocodone Bitart (Lortab 5/325) 1 tab Q6HRS PRN PO PAIN Last administered on 06/28/16 00:09; Start 06/26/16 at 08:45 Lorazepam (Ativan) 0.5 mg QID PRN PO ANXIETY / AGITATION Last administered on 03:18; Start 06/26/16 at 08:45 Atorvastatin Calcium (Lipitor) 20 mg QHS PO Last administered on 06/26/16 21: 47; Start 06/26/16 at 21:00; Stop 06/27/16 at 08:34; Status DC Finasteride (Proscar) 5 mg DAILY PO Last administered on 06/29/16 08:56; Start 06/26/16 at 09:00 Roflumilast (Daliresp) 500 mcg DAILY PO Last administered on 06/29/16 08:56; Start 06/26/16 at 09:00 Ferrous Sulfate (Feosol) 325 mg DAILYWBKFT PO Last administered on 06/29/16 08 :56; Start 06/26/16 at 10:00 Budesonide (Pulmicort) 0.5 mg RTBID NEB Last administered on 06/29/16 07:32; Start 06/26/16 at 20:00 Acetaminophen (Tylenol) 650 mg Q4HRS PRN PO MILD PAIN / TEMP Last administered on 06/29/16 03:21; Start 06/26/16 at 08:45 Bisacodyl (Dulcolax Supp) 10 mg PRN DAILY PRN MA CONSTIPATION; Start 06/26/16 at 08:45 Magnesium Hydroxide (Milk Of Magnesia) 2,400 mg PRN DAILY PRN PO CONSTIPATION; Start 06/26/16 at 08:45 Fentanyl Citrate (Fentanyl 2ml Vial) 50 mcg PRN Q2HR PRN IV PAIN; Start at 09:15; Stop 06/27/16 at 09:08; Status DC Sucralfate (Carafate) 1 gm QIDACHS PO Last administered on 06/29/16 08:56; Start 06/26/16 at 09:30 Pantoprazole Sodium (Protonix) 40 mg BIDAC PO Last administered on 06/29/16 08 :56; Start 06/26/16 at 10:00 Levofloxacin/ Dextrose 50 ml @ 50 mls/hr Q24H IV Last administered on 11:50; Start 06/26/16 at 12:00; Stop 06/27/16 at 09:08; Status DC Ertapenem 1 gm/ Sodium Chloride 50 ml @ 100 mls/hr Q24H IV ; Start 06/28/16 at 09:00; Stop 06/28/16 at 09:00; Status DC Morphine Sulfate 2 mg PRN Q4HRS PRN IV PAIN; Start 06/27/16 at 09:15 Morphine Sulfate 1 mg PRN Q4HRS PRN IV PAIN; Start 06/27/16 at 09:15 Ertapenem 1 gm/ Sodium Chloride 50 ml @ 100 mls/hr ONCE ONCE IV Last administered on 06/27/16 11:44; Start 06/27/16 at 11:00; Stop 06/27/16 at 11:29 ; Status DC Meropenem 1 gm/ Sodium Chloride 100 ml @ 200 mls/hr Q12HR IV Last administered on 06/29/16 08:56; Start 06/27/16 at 21:00 Lactulose 20 gm BID PO Last administered on 06/28/16 11:00; Start 06/28/16 at 11:00; Stop 06/29/16 at 04:00; Status DC Bisacodyl (Dulcolax Tab) 5 mg PRN DAILY PRN PO CONSTIPATION; Start 06/28/16 at 12:30 Polyethylene Glycol (miraLAX PACKET) 17 gm PRN DAILY PRN PO CONSTIPATION; Start 06/28/16 at 12:30 Active Scripts Active Tylenol (Acetaminophen) 325 Mg Tablet 1-2 Tab PO QID Reported Guaifenesin 400 Mg Tablet 400 Mg PO QID Hydrocodone-Apap 10-325 (Hydrocodone Bit/Acetaminophen) 1 Each Tablet 1 Tab PO PRN Q4-6HRS PRN Daliresp (Roflumilast) 500 Mcg Tablet 1 Tab PO QODAY Proair Hfa Inhaler (Albuterol Sulfate) 8.5 Gm Hfa.aer.ad 1 Puff INH PRN Q4-6HRS PRN Advair 500-50 Diskus (Fluticasone/Salmeterol) 1 Each Disk.w.dev 1 Puff IH BID Potassium Chloride 20 Meq Tablet.er 20 Meq PO DAILY Ranitidine Hcl 300 Mg Tablet 1 Tab PO QHS Albuterol Sulfate Neb Soln (Albuterol Sulfate) 1.25 Mg/3 Ml Vial.neb 1 Vial NEB QID Flonase Allergy Relief (Fluticasone Propionate) 9.9 Ml [place].susp 2 Sprays NS DAILY Zolpidem Tartrate 5 Mg Tablet 1 Tab PO QHS PRN Coenzyme Q-10 (Ubidecarenone) 30 Mg Capsule 60 Mg PO TID Tylenol Extra Strength (Acetaminophen) 500 Mg Tablet 500 Mg PO Spiriva (Tiotropium [place]) 18 Mcg Cap.w.dev 1 Cap IH DAILY Lortab 5-325 mg Tablet (Hydrocodone/Acetaminophen) 1 Each Tablet 1 Tab PO HS PRN Flomax (Tamsulosin Hcl) 0.4 Mg Cap.er.24h 1 Cap PO DAILY Finasteride 5 Mg Tablet 1 Tab PO DAILY Lorazepam 0.5 Mg Tablet 1 Tab PO QID PRN Furosemide 40 Mg Tablet 1 Tab PO BID Atorvastatin Calcium 20 Mg Tablet 1 Tab PO DAILY Omeprazole 40 Mg Capsule.dr 1 Cap PO BID Vitals/I & O Vital Sign - Last 24 Hours 06/28/16 06/28/16 06/28/16 06/28/16 11:00 11:07 15:00 15:47 Temp 98.1 98.0 98.1 98.0 Pulse 115 112 Resp 16 18 B/P (MAP) 100/54 (69) 97/56 (70) Pulse Ox 99 98 97 94 O2 Delivery Nasal Cannula Nasal Cannula Nasal Cannula Nasal Cannula O2 Flow Rate 6.0 5.0 6.0 4.0 06/28/16 06/28/16 06/28/16 06/28/16 19:00 19:40 20:00 23:00 Temp 98.5 98.7 98.5 98.7 Pulse 111 111 Resp 19 19 B/P (MAP) 97/61 (73) 97/63 (74) Pulse Ox 100 98 100 O2 Delivery Nasal Cannula Nasal Cannula Nasal Cannula Nasal Cannula O2 Flow Rate 6.0 4.0 2.0 6.0 06/29/16 06/29/16 07:20 07:34 Temp 96.6 96.6 Pulse 100 Resp 18 B/P (MAP) 113/63 (80) Pulse Ox 97 97 O2 Delivery Nasal Cannula Nasal Cannula O2 Flow Rate 3.0 Intake and Output 06/28/16 06/28/16 06/29/16 15:00 23:00 07:00 Intake Total 1000 ml 250 ml 727 ml Output Total 725 ml 725 ml 1050 ml Balance 275 ml -475 ml -323 ml Nutrition Consultation Dietary Evaluation: Recommendations by RD: PPN/TPN, Add supplement feedings Comments: magic cup and boost pudding to meals continue ppn at this time Expected Outcomes/Goals: to meet > 75% est nutr needs Interpretation of weight loss: >20% in 1 year Malnutrition Findings: Food and Nutrition Intake (Sev: <50% est energy req 5days Body Fat Depletion (Non Severe: Mild Depletion Weight Status: Underweight SABINO ROMEO MD June 29, 2016 10:23
--- NOTE | 2016-06-29 10:27 | DISCH ---
DISCHARGE INSTRUCTIONS Condition on Discharge Condition on Discharge: Stable Activity After Discharge Activity Instructions for Disc: Other, see below Other activity instructions: bedrest. up in chair. may ambulate with assistance only Diet after Discharge Diet after Discharge: Full Liquid Contacting the DR. after DC Call your doctor for: If your condition worsens Follow-Up Follow up with: dismiss to snf with [facility] SABINO ROMEO MD June 29, 2016 10:27
[2016-06-29 10:30] VITALS: BP 93/54
--- NOTE | 2016-06-29 10:39 | PDOC ---
Provider Note Provider Note discharge summary dictated # [id number] SABINO ROMEO MD June 29, 2016 10:39
--- NOTE | 2016-06-29 11:12 | PDOC ---
Subjective: Subjective: Swallowing the same. Had BM yesterday, abd tightness resolved. Objective: Objective: Per RN - DC to [facility] today. Vital Signs: Vital Signs Date Time Temp Pulse Resp B/P (MAP) Pulse Ox O2 Delivery O2 Flow Rate FiO2 06/29/16 10:54 97 Nasal Cannula 3.0 06/29/16 07:20 96.6 100 18 113/63 (80) 96.6 Labs: Laboratory Tests Test 06/29/16 04:45 White Blood Count 9.5 x10^3/uL Red Blood Count 2.99 x10^6/uL Hemoglobin 8.9 g/dL Hematocrit 26.8 % Mean Corpuscular Volume 90 fL Mean Corpuscular Hemoglobin 30 pg Mean Corpuscular Hemoglobin Concent 33 g/dL Red Cell Distribution Width 17.0 % Platelet Count 262 x10^3/uL Neutrophils (%) (Auto) 79 % Lymphocytes (%) (Auto) 10 % Monocytes (%) (Auto) 10 % Eosinophils (%) (Auto) 1 % Basophils (%) (Auto) 0 % Neutrophils # (Auto) 7.5 x10^3uL Lymphocytes # (Auto) 0.9 x10^3/uL Monocytes # (Auto) 1.0 x10^3/uL Eosinophils # (Auto) 0.1 x10^3/uL Basophils # (Auto) 0.0 x10^3/uL Sodium Level 137 mmol/L Potassium Level 4.4 mmol/L Chloride Level 101 mmol/L Carbon Dioxide Level 33 mmol/L Anion Gap 3 Blood Urea Nitrogen 10 mg/dL Creatinine 0.6 mg/dL Estimated GFR (Cockcroft-Gault) 156.1 Glucose Level 93 mg/dL Calcium Level 9.4 mg/dL Magnesium Level 2.3 mg/dL PE: GEN: NAD LUNGS: decreased, nasal cannula HEART: S1S2 ABD: S/ND/NT NEURO/PSYCH: A & O 3 A/P: Dysphagia, weight loss -declines PEG Constipation - resolved -- DC plans noted. GABRIELA MORGAN June 29, 2016 11:12
[2016-06-29] MEDS ORDERED: HYDROcodone/APAP 5/325MG 1 TAB TABLET PO PRN (12:00)
--- NOTE | 2016-06-29 12:22 | PDOC ---
PULMONARY PROGRESS NOTES Subjective pt with no increase soa feels better Vitals Vital Signs Date Time Temp Pulse Resp B/P (MAP) Pulse Ox O2 Delivery O2 Flow Rate FiO2 06/29/16 11:32 Nasal Cannula 3.0 06/29/16 10:54 97 06/29/16 10:30 97.9 111 18 93/54 (67) 97.9 ROS: No Nausea, No Chest Pain, No Abdominal Pain, No Increase Cough General: Alert Lungs: Clear Cardiovascular: S1, S2 Abdomen: Soft Neuro Exam: Alert Extremities: No Edema Skin: Warm Labs Laboratory Tests Test 06/29/16 04:45 White Blood Count 9.5 x10^3/uL (4.0-11.0) Red Blood Count 2.99 x10^6/uL (4.30-5.70) Hemoglobin 8.9 g/dL (13.0-17.5) Hematocrit 26.8 % (39.0-53.0) Mean Corpuscular Volume 90 fL (79-100) Mean Corpuscular Hemoglobin 30 pg (25-35) Mean Corpuscular Hemoglobin Concent 33 g/dL (31-37) Red Cell Distribution Width 17.0 % (11.5-14.5) Platelet Count 262 x10^3/uL (140-400) Neutrophils (%) (Auto) 79 % (31-73) Lymphocytes (%) (Auto) 10 % (24-48) Monocytes (%) (Auto) 10 % (0-9) Eosinophils (%) (Auto) 1 % (0-3) Basophils (%) (Auto) 0 % (0-3) Neutrophils # (Auto) 7.5 x10^3uL (1.8-7.7) Lymphocytes # (Auto) 0.9 x10^3/uL (1.0-4.8) Monocytes # (Auto) 1.0 x10^3/uL (0.0-1.1) Eosinophils # (Auto) 0.1 x10^3/uL (0.0-0.7) Basophils # (Auto) 0.0 x10^3/uL (0.0-0.2) Sodium Level 137 mmol/L (136-145) Potassium Level 4.4 mmol/L (3.5-5.1) Chloride Level 101 mmol/L (98-107) Carbon Dioxide Level 33 mmol/L (21-32) Anion Gap 3 (6-14) Blood Urea Nitrogen 10 mg/dL (8-26) Creatinine 0.6 mg/dL (0.7-1.3) Estimated GFR (Cockcroft-Gault) 156.1 Glucose Level 93 mg/dL (70-99) Calcium Level 9.4 mg/dL (8.5-10.1) Magnesium Level 2.3 mg/dL (1.8-2.4) Laboratory Tests Test 06/29/16 04:45 White Blood Count 9.5 x10^3/uL (4.0-11.0) Red Blood Count 2.99 x10^6/uL (4.30-5.70) Hemoglobin 8.9 g/dL (13.0-17.5) Hematocrit 26.8 % (39.0-53.0) Mean Corpuscular Volume 90 fL (79-100) Mean Corpuscular Hemoglobin 30 pg (25-35) Mean Corpuscular Hemoglobin Concent 33 g/dL (31-37) Red Cell Distribution Width 17.0 % (11.5-14.5) Platelet Count 262 x10^3/uL (140-400) Neutrophils (%) (Auto) 79 % (31-73) Lymphocytes (%) (Auto) 10 % (24-48) Monocytes (%) (Auto) 10 % (0-9) Eosinophils (%) (Auto) 1 % (0-3) Basophils (%) (Auto) 0 % (0-3) Neutrophils # (Auto) 7.5 x10^3uL (1.8-7.7) Lymphocytes # (Auto) 0.9 x10^3/uL (1.0-4.8) Monocytes # (Auto) 1.0 x10^3/uL (0.0-1.1) Eosinophils # (Auto) 0.1 x10^3/uL (0.0-0.7) Basophils # (Auto) 0.0 x10^3/uL (0.0-0.2) Sodium Level 137 mmol/L (136-145) Potassium Level 4.4 mmol/L (3.5-5.1) Chloride Level 101 mmol/L (98-107) Carbon Dioxide Level 33 mmol/L (21-32) Anion Gap 3 (6-14) Blood Urea Nitrogen 10 mg/dL (8-26) Creatinine 0.6 mg/dL (0.7-1.3) Estimated GFR (Cockcroft-Gault) 156.1 Glucose Level 93 mg/dL (70-99) Calcium Level 9.4 mg/dL (8.5-10.1) Magnesium Level 2.3 mg/dL (1.8-2.4) Medications Active Scripts Medications Dose Route/Sig Max Daily Dose Days Date Category Guaifenesin 400 Mg Tablet 400 Mg PO QID 06/26/16 Reported Hydrocodone-Apap 10-325 (Hydrocodone Bit/Acetaminophen) 1 Each Tablet 1 Tab PO PRN Q4-6HRS PRN 06/26/16 Reported Daliresp (Roflumilast) 500 Mcg Tablet 1 Tab PO QODAY 06/26/16 Reported Proair Hfa Inhaler (Albuterol Sulfate) 8.5 Gm Hfa.aer.ad 1 Puff INH PRN Q4-6HRS PRN 06/26/16 Reported Advair 500-50 Diskus (Fluticasone/Salmeterol) 1 Each Disk.w.dev 1 Puff IH BID 06/26/16 Reported Potassium Chloride 20 Meq Tablet.er 20 Meq PO DAILY 06/26/16 Reported Ranitidine Hcl 300 Mg Tablet 1 Tab PO QHS 06/26/16 Reported Albuterol Sulfate Neb Soln (Albuterol Sulfate) 1.25 Mg/3 Ml Vial.neb 1 Vial NEB QID 06/26/16 Reported Flonase Allergy Relief (Fluticasone Propionate) 9.9 Ml [place].susp 2 Sprays NS DAILY 06/26/16 Reported Zolpidem Tartrate 5 Mg Tablet 1 Tab PO QHS PRN 06/26/16 Reported Coenzyme Q-10 (Ubidecarenone) 30 Mg Capsule 60 Mg PO TID 06/26/16 Reported Tylenol (Acetaminophen) 325 Mg Tablet 1-2 Tab PO QID 06/06/16 Rx Tylenol Extra Strength (Acetaminophen) 500 Mg Tablet 500 Mg PO 10/14/15 Reported Spiriva (Tiotropium [place]) 18 Mcg Cap.w.dev 1 Cap IH DAILY 10/14/15 Reported Lortab 5-325 mg Tablet (Hydrocodone/Acetaminophen) 1 Each Tablet 1 Tab PO HS PRN 10/14/15 Reported Flomax (Tamsulosin Hcl) 0.4 Mg Cap.er.24h 1 Cap PO DAILY 10/14/15 Reported Finasteride 5 Mg Tablet 1 Tab PO DAILY 10/14/15 Reported Lorazepam 0.5 Mg Tablet 1 Tab PO QID PRN 10/14/15 Reported Furosemide 40 Mg Tablet 1 Tab PO BID 10/14/15 Reported Atorvastatin Calcium 20 Mg Tablet 1 Tab PO DAILY 10/14/15 Reported Omeprazole 40 Mg Capsule.dr 1 Cap PO BID 10/14/15 Reported Impression . 1. Acute on chronic respiratory failure. 2. Abnormal CT of the chest revealing some pulmonary nodule, possibly new nodules in the right upper lobe and left lower lobe. 3. Clinical pneumonia with CT revealing left lower lobe parenchymal changes. 4. Weight loss. 5. Weakness. 6. History of Vogel's esophagus. 7. Status post lobectomy. Plan . D/C TODAY AGREE ANIBX OUTPT . NURIS JORDAN MD June 29, 2016 12:22
--- NOTE | 2016-06-29 22:42 | DS ---
DATE OF DISCHARGE: 06/29/2016 CONSULTANTS: Dr. Genao and Dr. Amador. FINAL DIAGNOSES: 1. Failure to thrive. 2. Weight loss with cachexia. 3. Multiple mechanical falls. 4. Severe chronic obstructive pulmonary disease. 5. Acute bronchitis. 6. Chronic respiratory failure with hypoxia. 7. Vogel's esophagus. 8. Hyperlipidemia. 9. Cardiomyopathy. 10. Elevated transaminases. 11. Solid food dysphagia. 12. Dehydration. HOSPITAL COURSE: The patient is an 80-year-old -[place] male with a history of severe COPD and chronic respiratory failure with hypoxia, on home oxygen, who has a history of Vogel's esophagus, cardiomyopathy, who has an AICD, mild coronary artery disease, benign prostatic hypertrophy, osteoarthritis and paroxysmal atrial fibrillation, admitted to [facility] through the Emergency Room on 06/25/2016 with failure to thrive. He has had cachexia and weight loss and muscle wasting and multiple mechanical falls in the last few weeks. He does live alone. Family member does live nearby. He had been drinking Ensure, but had a distaste for it. He was coughing up some brown and yellow sputum, but no hemoptysis or fever. He was admitted to [facility] Emergency Room where a chest x-ray showed COPD and atelectasis, but no pneumonia was seen. A CAT scan of the head showed no acute finding and did show some dense fluid in the sinuses, possibly secondary to blood, in the left maxillary sinus and a small amount in the ethmoid sinus. X-rays of both of his hips and pelvis were negative for fracture. He was dehydrated and received IV fluids. He is a do not resuscitate per his wishes and his family concurs. He was admitted to the hospital for failure to thrive. He was seen by Dr. Genao for pulmonary consultation and also seen in consultation by Dr. Amador for GI. He declined a gastrostomy tube. He was placed on a full liquid diet. His dehydration resolved. He received PPN. He also received analgesics. He complained of left foot pain, but the x-ray of the left foot was negative for any acute fracture or abnormality. He did receive analgesics p.r.n. He did receive some IV antibiotics and he had gram-negative rods in the sputum. We just called the lab. The cultures are pending. He is just coughing occasionally. There is no evidence of pneumonia and he could have a very mild bronchitis and actually there could be a colonization too in the sputum. In any case, he will be switched to Levaquin. He had an echocardiogram, which showed a left ventricular ejection fraction of 30%. He also had some diastolic left ventricular dysfunction. He does have an AICD in place. The patient did receive some physical and occupational therapy. He was seen by [facility] and will be dismissed to a alf facility today with hospice until his daughter gets his home ready, so that he can return home with hospice with a 24-hour 7-day a week attendant ____. He will be dismissed to the alf facility, will be a do not resuscitate on a full liquid diet. He would like to leave the Menjivar catheter in place for comfort due to his mobility problems and generalized weakness. He will be followed by hospice. He will be dismissed on Levaquin 250 mg every day for 3 days, Ambien 5 mg at bedtime p.r.n. for insomnia, oxygen 3 liters per nasal cannula, Tylenol 650 mg every 4 hours p.r.n., albuterol nebulizer treatments every 4 hours p.r.n. and also Dulcolax suppository every day p.r.n., Pulmicort nebulizer treatments b.i.d., Pepcid 40 mg at bedtime, finasteride 5 mg every day, [place] 5/325 one every 4 hours p.r.n., DuoNeb nebulized treatments q.i.d., lorazepam 0.5 mg q.i.d. p.r.n., milk of magnesia 30 mL every day p.r.n., Protonix 40 mg b.i.d., MiraLax 17 grams every day p.r.n., Daliresp 500 mcg every day and Carafate 1 gram before meals t.i.d. and at bedtime and hopefully will be given liquid Carafate. He will be a do not resuscitate, transferred to alf facility later today. He will be seen by [facility] also there. SABINO ROMEO MD DR: LUCRECIA/dedra JOB#: [id number] / [id number]
== END 2016-06-29 14:15 | DRG 189 ==
LOC: ER 20:36 → 5 NORTH 21:52
PROVIDERS: ADMIT Internal Medicine; ATTEND Internal Medicine
DX: J96.21 Acute and chronic respiratory failure with hypoxia (principal); E43 Unspecified severe protein-calorie malnutrition; I42.9 Cardiomyopathy, unspecified; J98.11 Atelectasis; Z68.1 Body mass index [BMI] 19.9 or less, adult; J44.0 Chronic obstructive pulmonary disease with (acute) lower respiratory infection; R62.7 Adult failure to thrive; K22.4 Dyskinesia of esophagus; E78.5 Hyperlipidemia, unspecified; E86.0 Dehydration; I25.10 Atherosclerotic heart disease of native coronary artery without angina pectoris; I48.0 Paroxysmal atrial fibrillation; J20.9 Acute bronchitis, unspecified; K21.9 Gastro-esophageal reflux disease without esophagitis; G47.33 Obstructive sleep apnea (adult) (pediatric); R13.12 Dysphagia, oropharyngeal phase; K22.70 Barrett's esophagus without dysplasia; M19.90 Unspecified osteoarthritis, unspecified site; N40.0 Benign prostatic hyperplasia without lower urinary tract symptoms; Z51.5 Encounter for palliative care; Z66 Do not resuscitate; Z88.0 Allergy status to penicillin; Z90.2 Acquired absence of lung [part of]; Z95.810 Presence of automatic (implantable) cardiac defibrillator; Z99.81 Dependence on supplemental oxygen; Z87.11 Personal history of peptic ulcer disease; Z87.891 Personal history of nicotine dependence
CPT/HCPCS: 36415; 51702; 70450; 71010; 71250; 73521; 73620; 80048; 80053; 81001; 82550; 83735; 84443; 84484; 85027; 85651; 87070; 87205; 93005; 93306; 94250; 94640; 94760; 96374; 96376; J1335; J1956; J2185; J2270; J2405; J3010; J7030; J7620; 97530; 97535; 99285-25